=== PATIENT | female | born 1970 | race Caucasian/White ===

== ENCOUNTER → 2018-04-22 09:38 | Outpatient (CLI) | payer SELFPAY ==
--- NOTE | 2018-04-22 10:20 | US_ITS ---
HISTORY: NODULE TECHNIQUE: Keen scale and color doppler imaging was performed of the thyroid gland. COMPARISON: None FINDINGS: # of images incl. paperwork: 58 RIGHT THYROID LOBE: 4.4 x 1.6 x 1.5 cm. Homogeneous echotexture with normal vascularity. 0.4 cm solid appearing avascular hypoechoic to thyroid parenchyma nodule in the posterior, mid pole. 0.5 cm hyperechoic solid-appearing avascular nodule more inferiorly and also posterior in the mid pole. LEFT THYROID LOBE: 4.2 x 1.7 x 1.3 cm. Homogeneous echotexture with normal vascularity. No thyroid nodules are present. In the left lobe ISTHMUS: 0.4 cm thick. No nodules. US/Thyroid IMPRESSION: 2 subcentimeter nodules in the right lobe of the thyroid gland. at 2323 Reported and signed by: Jean-Pierre Ceballos MD Electronically Signed: Jean-Pierre Ceballos, at 23:22 EST Tel , Service support ,
--- OUTSIDE RECORDS SUMMARY | 2018-06-26 09:53 | XMS RPT_ITS | Continuity of Care Document ---
:1970 Author Organization [facility] Address [address] [address] Phone Care Team Providers Name Role Phone Elsie Padron DO Unavailable Noemi Kaminski Unavailable Leroy Sullivan MD Unavailable Lyssa Hwang Unavailable KINGSTON Torres Unavailable Unavailable Unavailable Unavailable Problems Name Dates Details Abortions/Miscarriages Comments: 1. Spontaneous . 2002 Status: Active Body mass index 34.0-34.9, adult (Z68.34, V85.34) Status: Active History of abnormal cervical Pap smear (Z87.898, V13.29) Comments: 2017-- referred to panel wirer and repeat pap normal Status: Active Hyperlipidemia (E78.5, 272.4) Status: Active Hypertension, essential, benign (I10, 401.1) Status: Active Hypothyroidism (E03.9, 244.9) Comments: on no meds currently nad labs normal Status: Active Influenza vaccination declined (Renamed from Refused influenza vaccine) (Z28.21, V64.06) Status: Active Noncompliance with medications (Z91.14, V15.81) Comments: pt stopped her medication for thyriod bc she just thought was supposed Status: Active Non-smoker (Z78.9, V49.89) Status: Active Pregnancies () Comments: 4. 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 Medications Name Dates Details No Known Historical Medications Diflucan 200 MG Oral Tablet 1 Tablet qd for 5 days Quantity: 5 {Tablet} Refills: 0 Ordered:05-Nov-2015 Felipa Padron DO, DO, Kathleen Start : 05-Nov-2015 End : 10-Nov-2015 Inactive Nystop 678365 UNIT/GM External Powder 1 (one) Powder Powder tid for 0 days Quantity: 1 {Bottle} Refills: 5 Ordered:18-Apr-2018 Joaquina Torres LPN Start : 05-Nov-2015 End : 18-Apr-2018 Inactive Comments:large bottle PREDNISONE, 10MG (Oral Tablet) 3 (three) Tablet daily for 7 days Quantity: 21 {Tablet} Refills: 0 Ordered:27-Mar-2014 Juan DACOSTA Aracelis Start : 27-Mar-2014 End : 03-Apr-2014 Inactive Comments:with food Synthroid 50 MCG Oral Tablet 1 Tablet qd for 0 days Quantity: 30 {Tablet} Refills: 6 Ordered:05-Nov-2015 Joaquina Torres LPN Start : 18-Sep-2012 End : 05-Nov-2015 Inactive Terbinafine HCl 1 % External Cream 1 (one) Cream bid for 0 days Quantity: 1 {Tube} Refills: 3 Ordered:05-Nov-2015 Joaquina Torres LPN Start : 03-Apr-2014 End : 05-Nov-2015 Inactive CHERATUSSIN AC, 100-10MG/5ML (Oral Syrup) 1 Syrup 1-2 tsp every 6 hours prn for 0 days Quantity: 8 {Syrup} Refills: 0 Ordered:27-Mar-2014 Mariel Wolfe LPN Start : 11-Apr-2013 End : 27-Mar-2014 Discontinued Comments:eight ounces HYDROCHLOROTHIAZIDE, 12.5MG (Oral Capsule) 1 Capsule qd for 30 days Refills: 0 Ordered:12-Mar-2011 Vito CIDFelipa DO, Kathleen Start : 12-Mar-2011 End : 12-Mar-2011 Discontinued LEVOTHYROXINE SODIUM, 50MCG (Oral Tablet) 1 Tablet qd for 30 days Refills: 0 Ordered:13-Aug-2011 Vito CIDFelipa DO, Kathleen Start : 13-Aug-2011 End : 13-Aug-2011 Discontinued PREDNISONE, 20MG (Oral Tablet) 1 Tablet daily for 5 dyas for 0 days Quantity: 5 {Tablet} Refills: 0 Ordered:27-Mar-2014 Mariel Wolfe LPN Start : 11-Apr-2013 End : 27-Mar-2014 Discontinued SELENIUM SULFIDE, 2.5% (External Lotion) apply over lesions Lotion qd for 0 days Quantity: 1 {bottle(s)} Refills: 1 Ordered:27-Mar-2014 Mariel Wolfe LPN Start : 12-Mar-2011 End : 27-Mar-2014 Discontinued Comments:leave on for 15 mins then rinse Allergies and Adverse Reactions Name Dates Details Aspirin (Salicylates) (Allergy) Status: Active Penicillins (Allergy) Reaction: Nausea Status: Active Past Medical History Name Dates Details Candidiasis of breast (B37.89, 112.89) Status: Inactive as of 18-Apr-2018 Hematuria (R31.9, 599.7) Comments: the blood resolved but moderate leuks-- will cx before tx since asx Status: Resolved as of 14-May-2011 Hoarse voice quality (R49.0, 784.42) Comments: already saw ENT and had scope and has cyst on vocal cords Status: Inactive as of 18-Apr-2018 HOARSE VOICE QUALITY (784.49) Comments: intermittent -- repeatedly off and on Status: Inactive as of 18-Sep-2012 Rash (R21, 782.1) Comments: xple on arms and chest unknown etiology prednisone not helping Status: Inactive as of 05-Nov-2015 Tinea versicolor (B36.0, 111.0) Status: Inactive as of 18-Sep-2012 Procedures Date Value Details 12-Nov-2015 Thyroid Result: Comments: See Note; NOTES: [facility] Imaging Services [address] [place] [address] Verdana 4d Thyroid MR#: [id number] Acct: [id number] Name: RAMONE ALEXANDER Rep #: [id number] : 1970 F 45 From: Dirk Nelson MD PCP: Elsie Padron DO Status: REG CLI Study: Thyroid Date of Exam: 11/12/15 Exam# [id number] Ordering Dr: Elsie Padron DO STUDY: THYROID ULTRAS OUND REASON FOR EXAM: Female, 45 years old. thyroidmegaly felt by doctor TECHNIQUE: Ultrasound evaluation of the thyroid was performed with real-time and static adkins-scale imaging. COMPARISON: None. FINDINGS: RIGHT LOBE: The right lobe of the thyroid gland measures 5.3x2x1.5 cm. There is a homogeneous echotexture. There are 2 lesions. The lesions measures study : Lesion #1 measures 4x4 x 3 mm. Lesion #2 measures 6x7x3 mm. These lesions have nonspecific appearance there are most likely represent benign. LEFT LOBE: The left lobe of the thyroid gland measures 5. 4x1.7x1.7 cm. There is a homogeneous echotexture. There are no demonstrated solid, cystic or complex lesions. ISTHMUS: The isthmus measures 3 mm. . The regional lymph nodes are normal. US/Thyroid IMPRESSION: 2 nodules in the right thyroid lobe the largest measuring 7 mm in greatest diameter most likely represent benign lesions. Electronical ly Signed: Dirk Nelson MD at 8:35 EDT Tel , Service support [phone], CC: Elsie Padron DO Outdoor Recreation Specialist: Signed 05-Nov-2015 ELECTROCARDIOGRAM, COMPLETE (ECG) (25309) Comments: nsr no acute chg Result: [MEASUREMENTS ANALYSIS] Date of Test: 11/05/2015 14:55:36; Heart Rate: 77; DE Interval: 152; QRS: 88; QT Interval: 378; Corrected QT Interval (QTc): 407; P Wave [place]: 42; QRS Wave [place]: 28; T Wave [place]: 34; Blood Pressure: 120/82 [ECG DIAGNOSTIC STATEMENTS] Date of Test: 11/05/2015 14:55:36; Summary: Sinus Rhythm WITHIN NORMAL LIMITS Family History Unknown Family Member Name Dates Details Diabetes Mellitus Comments: Father. Status: Active Hypercholesterolemia Comments: Father. Status: Active Hypertension Comments: Mother. Father. Status: Active Social History Name Dates Details Caffeine Use Status: Active No Drug Use Status: Active Non Drinker/No Alcohol Use Status: Active Non Smoker/No Tobacco Use Status: Active Tobacco use: Never smoker. Comments: 08/13/11 Status: Active Smoking Status Name Dates Details Never smoker Vital Signs Date Test Result Details [id number]-Gey-[id number]:16 Comments: recheck bp 128/90 Pulse 85 /min Comments: Pattern: Regular Respiration Rate 18 /min Comments: Pattern: Unlabored O2 SAT 96 % Comments: Room air BP Systolic 128 mm[Hg] Comments: Patient Position: Standing; Cuff Location: Left Arm; Cuff Size: Large BP Diastolic 98 mm[Hg] Comments: Patient Position: Standing; Cuff Location: Left Arm; Cuff Size: Large Weight 199.375 lb Height 64 in Body Mass Index Calculated 34.22 kg/m2 Body Surface Area Calculated 1.95 m2 :25 Pulse 89 /min Comments: Pattern: Regular Respiration Rate 18 /min Comments: Pattern: Unlabored O2 SAT 97 % Comments: Room air BP Systolic 120 mm[Hg] Comments: Patient Position: Sitting; Cuff Location: Left Arm; Cuff Size: Large BP Diastolic 80 mm[Hg] Comments: Patient Position: Sitting; Cuff Location: Left Arm; Cuff Size: Large Weight 199 lb Height 64 in Body Mass Index Calculated 34.16 kg/m2 Body Surface Area Calculated 1.95 m2 :42 Pulse 90 /min Comments: Pattern: Regular Respiration Rate 18 /min Comments: Pattern: Unlabored O2 SAT 98 % Comments: Room air BP Systolic 120 mm[Hg] Comments: Patient Position: Sitting; Cuff Location: Left Arm; Cuff Size: Large BP Diastolic 82 mm[Hg] Comments: Patient Position: Sitting; Cuff Location: Left Arm; Cuff Size: Large Weight 199.125 lb Height 64 in Body Mass Index Calculated 34.18 kg/m2 Body Surface Area Calculated 1.95 m2 :15 Temperature 97 f Comments: Method: Temporal Pulse 89 /min Comments: Pattern: Regular Respiration Rate 16 /min Comments: Pattern: Unlabored O2 SAT 98 % Comments: Room air BP Systolic 122 mm[Hg] Comments: Patient Position: Sitting; Cuff Location: Left Arm; Cuff Size: Standard BP Diastolic 78 mm[Hg] Comments: Patient Position: Sitting; Cuff Location: Left Arm; Cuff Size: Standard Weight 203.1875 lb Height 64 in Body Mass Index Calculated 34.88 kg/m2 Body Surface Area Calculated 1.97 m2 :20 Temperature 98 f Comments: Method: Oral Pulse 90 /min Comments: Pattern: Regular Respiration Rate 17 /min O2 SAT 98 % Comments: Room air BP Systolic 120 mm[Hg] Comments: Patient Position: Sitting; Cuff Location: Left Arm; Cuff Size: Standard BP Diastolic 72 mm[Hg] Comments: Patient Position: Sitting; Cuff Location: Left Arm; Cuff Size: Standard Weight 200.5 lb Height 64 in Body Mass Index Calculated 34.42 kg/m2 Body Surface Area Calculated 1.96 m2 :23 Temperature 99 f Comments: Method: Oral Pulse 100 /min Comments: Pattern: Regular Respiration Rate 16 /min Comments: Pattern: Unlabored O2 SAT 98 % Comments: Room air BP Systolic 122 mm[Hg] Comments: Patient Position: Sitting; Cuff Location: Left Arm; Cuff Size: Standard BP Diastolic 82 mm[Hg] Comments: Patient Position: Sitting; Cuff Location: Left Arm; Cuff Size: Standard Weight 200.5 lb Height 64 in Body Mass Index Calculated 34.42 kg/m2 Body Surface Area Calculated 1.96 m2 :13 Temperature 98.2 f Comments: Method: Oral Pulse 60 /min Comments: Pattern: Regular Respiration Rate 20 /min Comments: Pattern: Unlabored BP Systolic 102 mm[Hg] Comments: Patient Position: Sitting; Cuff Location: Left Arm; Cuff Size: Standard BP Diastolic 70 mm[Hg] Comments: Patient Position: Sitting; Cuff Location: Left Arm; Cuff Size: Standard Weight 200.5 lb Height 64 in Body Mass Index Calculated 34.42 kg/m2 Body Surface Area Calculated 1.96 m2 :03 Temperature 98 f Pulse 60 /min Comments: Pattern: Regular Respiration Rate 20 /min Comments: Pattern: Unlabored BP Systolic 118 mm[Hg] Comments: Patient Position: Sitting; Cuff Location: Left Arm; Cuff Size: Large BP Diastolic 84 mm[Hg] Comments: Patient Position: Sitting; Cuff Location: Left Arm; Cuff Size: Large Weight 197.1875 lb Height 64 in Body Mass Index Calculated 33.85 kg/m2 Body Surface Area Calculated 1.94 m2 :18 Temperature 98 f Pulse 72 /min Comments: Pattern: Regular Respiration Rate 20 /min Comments: Pattern: Unlabored BP Systolic 110 mm[Hg] Comments: Patient Position: Sitting; Cuff Location: Left Arm; Cuff Size: Large BP Diastolic 72 mm[Hg] Comments: Patient Position: Sitting; Cuff Location: Left Arm; Cuff Size: Large Weight 195.5 lb Height 64 in Body Mass Index Calculated 33.56 kg/m2 Body Surface Area Calculated 1.94 m2 :13 Temperature 97.2 f Comments: Method: Oral Pulse 60 /min Comments: Pattern: Regular Respiration Rate 20 /min Comments: Pattern: Unlabored BP Systolic 128 mm[Hg] Comments: Patient Position: Sitting; Cuff Location: Left Arm; Cuff Size: Large BP Diastolic 82 mm[Hg] Comments: Patient Position: Sitting; Cuff Location: Left Arm; Cuff Size: Large Weight 195.5 lb Height 64 in Body Mass Index Calculated 33.56 kg/m2 Body Surface Area Calculated 1.94 m2 :56 Temperature 98.2 f Comments: Method: Oral Pulse 88 /min Comments: Pattern: Regular Respiration Rate 18 /min Comments: Pattern: Unlabored BP Systolic 118 mm[Hg] Comments: Patient Position: Sitting; Cuff Location: Left Arm; Cuff Size: Standard BP Diastolic 80 mm[Hg] Comments: Patient Position: Sitting; Cuff Location: Left Arm; Cuff Size: Standard Weight 195.5625 lb Height 64 in Body Mass Index Calculated 33.57 kg/m2 Body Surface Area Calculated 1.94 m2 Results Date Description Value Details :45 PAP I-G w/rfx hrHPV Comments: CYTOLOGY INFORMATION:- CLINICAL INFORMATION:- DATE LMP/MENOPAUSE: 06/26/16 LMP- COLLECTION VIAL: Thin Prep Vial- HORTICULTURAL WORKER SOURCE: CERVICAL/ENDOCERVICAL- COLLECTION TECHNIQUE: [facility]AT[facility] (refer to report for specific site)refer to report for address and phone number HPV HC,HGH RISK Negative Comments: This high-risk HPV test detects thirteen high-risk types(16/18/31/33/35/39/45/51/52/56/58/59/68) withoutdifferentiation.Performed at: - Lab[address]FabianWest [place], [place] [id number] (Normal) b Director: Sridevi Love MD, Phone: [phone] at: =[facility] LabCo[address]Fabian alons[place], [place] [id number] Director: Sridevi Love MD, Phone: [phone] HPV RFLX Comment Comments: See below for HPV testing results. (Normal) PAPSMR Comment Comments: The Pap smear is a screening test designed to aid in thedetection of premalignant and malignant conditions of theuterine cervix. It is not a diagnostic procedure andshould not be used as the sole means (Normal) of detecting cervicalcancer. Both false-positive and false-negative reports dooccur. COMM . (Normal) TEST METHOD Comment Comments: This liquid based ThinPrep(R) pap test was screened withthe use of an image guided system. (Normal) Path prov. ICD9 Comment Comments: R87.610, R87.5 (Normal) SIGN Comment Comments: Sridevi Love MD, Pathologist (Normal) PERFORM Comment Comments: Suzanna Avila, Chemical Maker (ASCP) (Normal) RECOMM Comment Comments: Suggest follow up as clinically appropriate. (Abnormal) ADEQ Comment Comments: Satisfactory for evaluation. Endocervical and/or squamous metaplasticcells (endocervical component) are present. (Normal) DIAGN Comment Comments: EPITHELIAL CELL ABNORMALITY.ATYPICAL SQUAMOUS CELLS OF UNDETERMINED SIGNIFICANCE.FUNGAL ORGANISMS MORPHOLOGICALLY CONSISTENT WITH SAMI SPECIES AREPRESENT. (Abnormal) [id number]-Vey-[id number]:37 HgA1C , Office (36273) HgA1C , Office 5.6 % (Normal) Range: 4.6 - 7.1 6-Ofr-444288:59 Microscopic Examination Comments: PATIENT NOT FASTINGPERFORMED BY: [facility] Bvunth[address]Dublin [place] [id number] Bacteria None seen (Normal) Mucus Threads Present (Normal) Epithelial Cells (non renal) 0-10 {/hpf} (Normal) Range: 0 - 10 RBC 0-2 {/hpf} (Normal) Range: 0 - 2 WBC 0-5 {/hpf} (Normal) Range: 0 - 5 :59 T3, FREE (TRIDOTHYRONINE) (43109) Comments: PATIENT NOT FASTINGPERFORMED BY: [facility] [id number] Triiodothyronine,Free,Serum 3.1 pg/mL (Normal) Range: 2.0-4.4 :59 T4, FREE (THYROXINE) (89956) Comments: PATIENT NOT FASTINGPERFORMED BY: [facility] [id number] T4,Free(Direct) 0.94 ng/dL (Normal) Range: 0.82-1.77 :59 TSH (35537) Comments: PATIENT NOT FASTINGPERFORMED BY: [facility] [id number] TSH 1.590 {uIU/mL} (Normal) Range: 0.450-4.500 :59 URINALYSIS, W/ MICRO (40684) Comments: PATIENT NOT FASTINGPERFORMED BY: [facility] Oghdcl7476 [facility] [id number] Microscopic Examination See below: (Normal) Comments: Microscopic was indicated and was performed. Microscopic Examination MICRON (Normal) Comments: Microscopic follows if indicated. Nitrite, Urine Negative (Normal) Urobilinogen,Semi-Qn 0.2 mg/dL (Normal) Range: 0.2-1.0 Bilirubin Negative (Normal) Occult Blood Negative (Normal) Ketones Negative (Normal) Glucose Negative (Normal) Protein Negative (Normal) WBC Esterase Negative (Normal) Appearance Clear (Normal) Urine-Color Yellow (Normal) pH 7.0 (Normal) Range: 5.0-7.5 Specific [place] 1.014 (Normal) Range: 1.005-1.030 :59 MICROALBUMIN: CREATININE RATIO Comments: PATIENT NOT FASTINGPERFORMED BY: [facility] [id number] ([id number]) AND (50305) Microalb/Creat Ratio 9.0 {mg/g_creat} (Normal) Range: 0.0-30.0 Microalbumin, Urine 5.3 ug/mL (Normal) Creatinine, Urine 58.7 mg/dL (Normal) :59 METABOLIC PANEL, COMPREHENSIVE Comments: PATIENT NOT FASTINGPERFORMED BY: sMedio70 [facility]UUNC [facility] [id number] ([id number]) ALT (SGPT) 24 [iU]/L (Normal) Range: 0-32 AST (SGOT) 19 [iU]/L (Normal) Range: 0-40 Alkaline Phosphatase, S 62 [iU]/L (Normal) Range: 39-117 Bilirubin, Total 0.4 mg/dL (Normal) Range: 0.0-1.2 A/G Ratio 1.8 (Normal) Range: 1.1-2.5 Globulin, Total 2.5 g/dL (Normal) Range: 1.5-4.5 Albumin, Serum 4.4 g/dL (Normal) Range: 3.5-5.5 Protein, Total, Serum 6.9 g/dL (Normal) Range: 6.0-8.5 Calcium, Serum 9.6 mg/dL (Normal) Range: 8.7-10.2 Carbon Dioxide, Total 26 mmol/L (Normal) Range: 18-29 Chloride, Serum 99 mmol/L (Normal) Range: 97-108 Potassium, Serum 4.0 mmol/L (Normal) Range: 3.5-5.2 Sodium, Serum 142 mmol/L (Normal) Range: 134-144 BUN/Creatinine Ratio 14 (Normal) Range: 9-23 eGFR If Africn Am 127 mL/min/1.73 (Normal) eGFR If NonAfricn Am 110 mL/min/1.73 (Normal) Creatinine, Serum 0.63 mg/dL (Normal) Range: 0.57-1.00 BUN 9 mg/dL (Normal) Range: 6-24 Glucose, Serum 98 mg/dL (Normal) Range: 65-99 :59 CBC W/AUTO DIFF WBC Comments: PATIENT NOT FASTINGPERFORMED BY: [employer] Vhbdna9565 [facility] [id number] Information: [id number]; will review at 11/16 (42420) Immature Grans (Abs) 0.0 {x10E3/uL} (Normal) Range: 0.0-0.1 Immature Granulocytes 0 % (Normal) Baso (Absolute) 0.0 {x10E3/uL} (Normal) Range: 0.0-0.2 Eos (Absolute) 0.1 {x10E3/uL} (Normal) Range: 0.0-0.4 Monocytes(Absolute) 0.5 {x10E3/uL} (Normal) Range: 0.1-0.9 Lymphs (Absolute) 2.1 {x10E3/uL} (Normal) Range: 0.7-3.1 Neutrophils (Absolute) 4.2 {x10E3/uL} (Normal) Range: 1.4-7.0 Basos 0 % (Normal) Eos 1 % (Normal) Monocytes 8 % (Normal) Lymphs 30 % (Normal) Neutrophils 61 % (Normal) Platelets 225 {x10E3/uL} (Normal) Range: 150-379 RDW 13.6 % (Normal) Range: 12.3-15.4 MCHC 32.6 g/dL (Normal) Range: 31.5-35.7 MCH 29.5 pg (Normal) Range: 26.6-33.0 MCV 91 fL (Normal) Range: 79-97 Hematocrit 43.0 % (Normal) Range: 34.0-46.6 Hemoglobin 14.0 g/dL (Normal) Range: 11.1-15.9 RBC 4.75 {x10E6/uL} (Normal) Range: 3.77-5.28 WBC 6.9 {x10E3/uL} (Normal) Range: 3.4-10.8 :52 Rapid Flu (30608 x 2) Influenza A Ag negative (Normal) :24 Rapid Strep Test, Office (40843) Rapid Strep Test, Office Negative (Normal) :42 LIPID PANEL (20306) Comments: PATIENT WAS FASTINGPERFORMED BY: LabCoRiverview Medical CenterWujwbz5772 [facility] [id number] LDL/HDL Ratio 4.0 {ratio_units} (Abnormal) Range: 0.0-3.2 LDL Cholesterol Calc 140 mg/dL (Abnormal) Range: 0-99 VLDL Cholesterol Markos 31 mg/dL (Normal) Range: 5-40 HDL Cholesterol 35 mg/dL (Abnormal) Comments: According to ATP-III Guidelines, HDL-C >59 mg/dL is considered anegative risk factor for CHD. Triglycerides 155 mg/dL (Abnormal) Range: 0-149 Cholesterol, Total 206 mg/dL (Abnormal) Range: 100-199 22-Vkr-411377:42 URINALYSIS, W/ MICRO (40581) Comments: PATIENT WAS FASTINGPERFORMED BY: [employer] [id number] Microscopic Examination See below: (Normal) Nitrite, Urine Negative (Normal) Urobilinogen,Semi-Qn 0.2 mg/dL (Normal) Range: 0.0-1.9 Bilirubin Negative (Normal) Occult Blood Trace (Abnormal) Ketones Negative (Normal) Glucose Negative (Normal) Protein Negative (Normal) WBC Esterase 2+ (Abnormal) Appearance Clear (Normal) Urine-Color Yellow (Normal) pH 7.5 (Normal) Range: 5.0-7.5 Specific [place] 1.016 (Normal) Range: 1.005-1.030 27-Ube-616633:42 MICROALBUMIN: CREATININE RATIO Comments: PATIENT WAS FASTINGPERFORMED BY: [employer]70 [facility] [id number] (64210) AND (36207) Microalb/Creat Ratio 6.7 {mg/g_creat} (Normal) Range: 0.0-30.0 Microalbumin, Urine 7.0 ug/mL (Normal) Range: 0.0-17.0 Creatinine, Urine 104.7 mg/dL (Normal) Range: 15.0-278.0 86-Qqv-649130:42 METABOLIC PANEL, COMPREHENSIVE Comments: PATIENT WAS FASTINGPERFORMED BY: [employer] [facility] [id number] (37732) ALT (SGPT) 25 [iU]/L (Normal) Range: 0-32 AST (SGOT) 19 [iU]/L (Normal) Range: 0-40 Alkaline Phosphatase, S 59 [iU]/L (Normal) Range: 25-150 Bilirubin, Total 0.5 mg/dL (Normal) Range: 0.0-1.2 A/G Ratio 1.7 (Normal) Range: 1.1-2.5 Globulin, Total 2.6 g/dL (Normal) Range: 1.5-4.5 Albumin, Serum 4.4 g/dL (Normal) Range: 3.5-5.5 Protein, Total, Serum 7.0 g/dL (Normal) Range: 6.0-8.5 Calcium, Serum 9.2 mg/dL (Normal) Range: 8.7-10.2 Carbon Dioxide, Total 22 mmol/L (Normal) Range: 19-28 Comments: Please note reference interval change Chloride, Serum 101 mmol/L (Normal) Range: 97-108 Potassium, Serum 4.3 mmol/L (Normal) Range: 3.5-5.2 Sodium, Serum 138 mmol/L (Normal) Range: 134-144 BUN/Creatinine Ratio 17 (Normal) Range: 9-23 eGFR If Africn Am 129 mL/min/1.73 (Normal) eGFR If NonAfricn Am 112 mL/min/1.73 (Normal) Creatinine, Serum 0.64 mg/dL (Normal) Range: 0.57-1.00 BUN 11 mg/dL (Normal) Range: 6-24 Glucose, Serum 90 mg/dL (Normal) Range: 65-99 71-Tjn-998253:42 CBC WITH MANUAL DIFF Comments: PATIENT WAS FASTINGPERFORMED BY: [facility]6[address] [facility] [id number] Information: [id number] (52096) Immature Grans (Abs) 0.0 {x10E3/uL} (Normal) Range: 0.0-0.1 Immature Granulocytes 0 % (Normal) Range: 0-2 Baso (Absolute) 0.0 {x10E3/uL} (Normal) Range: 0.0-0.2 Eos (Absolute) 0.1 {x10E3/uL} (Normal) Range: 0.0-0.4 Monocytes(Absolute) 0.4 {x10E3/uL} (Normal) Range: 0.1-1.0 Lymphs (Absolute) 2.3 {x10E3/uL} (Normal) Range: 0.7-4.5 Neutrophils (Absolute) 3.4 {x10E3/uL} (Normal) Range: 1.8-7.8 Basos 0 % (Normal) Range: 0-3 Eos 1 % (Normal) Range: 0-7 Monocytes 6 % (Normal) Range: 4-13 Lymphs 37 % (Normal) Range: 14-46 Neutrophils 56 % (Normal) Range: 40-74 Platelets 244 {x10E3/uL} (Normal) Range: 140-415 RDW 13.8 % (Normal) Range: 12.3-15.4 MCHC 33.3 g/dL (Normal) Range: 31.5-35.7 MCH 29.9 pg (Normal) Range: 26.6-33.0 MCV 90 fL (Normal) Range: 79-97 Hematocrit 41.4 % (Normal) Range: 34.0-46.6 Hemoglobin 13.8 g/dL (Normal) Range: 11.1-15.9 RBC 4.61 {x10E6/uL} (Normal) Range: 3.77-5.28 WBC 6.2 {x10E3/uL} (Normal) Range: 4.0-10.5 02-Dkr-998727:42 TSH (63522) Comments: PATIENT WAS FASTINGPERFORMED BY: [employer] Pjggfw2026 [facility] [id number] TSH 1.580 {uIU/mL} (Normal) Range: 0.450-4.500 21-Gnt-904233:42 Microscopic Examination Comments: PATIENT WAS FASTINGPERFORMED BY: [employer] Rijctb7552 [facility] [id number] Bacteria None seen (Normal) Mucus Threads Present (Normal) Epithelial Cells (non renal) 0-10 {/hpf} (Normal) Range: 0 - 10 RBC 0-3 {/hpf} (Normal) Range: 0 - 3 WBC 0-5 {/hpf} (Normal) Range: 0 - 5 61-Iiv-684831:03 TSH (62890) Comments: PATIENT NOT FASTINGPERFORMED BY: [facility]usRiverview Medical CenterHqhbps3208 [facility] [id number] Information: [id number] TSH 2.400 {uIU/mL} (Normal) Range: 0.450-4.500 75-Fau-50203:29 PELVIC (NON ) Radiology Report See Note (Normal) Comments: PROCEDURE: ULTRASOUND OF THE FEMALE PELVIS - COMPLETE REASON FOR EXAM: Female, 40 years old. LMP: April 23, 2011.Uterinefibroids. TECHNIQUE: Transabdominal TECHNICAL QUALITY: Adequate. COLE RISON: None. FINDINGS:The uterus is retroverted and is in a midline position. The uterusmeasures 12.2 x 8.2 x 1.5 cm. The endometrium measures 1.2 mm inthickness, and is hyperechoic. There is no de monstrated endometrialmass.There are 4 fibroids seen within the body of the uterus. The largestmeasures 4.1 cm x 2.9 cm x 2.7 cm. Normal uterine cervix. The right ovary measures 3.0 cm x 2.7 cm by 2.5 cm. There is no rightovarian cyst or ovarian mass. There is no visualized right adnexal massorcomplex lesion. The left ovary measures 2.0 cm x 2.2 cm by 1.7 cm. There is no leftovarian cyst or ovari an mass. There is no visualized left adnexal massorcomplex lesion. There is minimal fluid in the cul-de-sac. The distended urinary bladder has a volume of 571 ml. There is a normalwall thickness of th e distended urinary bladder. There is nodemonstrated mass within the urinary bladder. There are no demonstratedbladder calculi. IMPRESSION:Enlarged fibroid uterus. To consult with a radiologist martha rding this report, please call our [id number] line @ Dictated on 05/19/11 0939 by Amanda Chowdhury MDribed on 05/19/11 1343 by ITS IMPORTSign by Daniel Chowdhury MD on 05/05 08/13 1344 Sign by: Daniel Chowdhury MD 04-Krb-972129:28 URINE TAQUERIA CULTURE-IDENTIFICATN Comments: PATIENT NOT FASTINGPERFORMED BY: [facility]6370 [facility] [id number] Information: [id number] ([id number]) Result 1 MUG (Normal) Comments: Mixed urogenital flora10,000-25,000 colony forming units per mL Urine Final report (Normal) Culture,Comprehensive 16-Syb-911437:40 Urinalysis, Office ([id number]) UA - BILIRUBIN Negative (Normal) UA - BLOOD Negative (Normal) UA - GLUCOSE Negative (Normal) UA - KETONES Negative mg/dL (Normal) UA - LEUKOCYTE ESTERASE Moderate (Normal) UA - NITRITE Negative (Normal) UA - PH 8.0 (Normal) UA - PROTEIN Negative mg/dL (Normal) UA - SPECIFIC GRAVITY 1.020 (Normal) URINE UROBILINGN EMILY TIMED Normal mg/dL (Normal) 1-Xvv-691386:09 Microscopic Examination Comments: PATIENT WAS FASTINGPERFORMED BY: [employer] [facility] [id number] Bacteria Moderate (Abnormal) Mucus Threads Present (Normal) Epithelial Cells (non renal) 0-10 {/hpf} (Normal) Range: 0 - 10 RBC 11-30 {/hpf} (Abnormal) Range: 0 - 3 WBC 11-30 {/hpf} (Abnormal) Range: 0 - 5 0-Upd-261698:09 TSH ([id number]) Comments: PATIENT WAS FASTINGPERFORMED BY: [employer] [facility] [id number] TSH 1.490 {uIU/mL} (Normal) Range: 0.450-4.500 0-Tpy-242984:09 URINALYSIS, W/ MICRO ([id number]) Comments: PATIENT WAS FASTINGPERFORMED BY: [employer] [facility] [id number] Microscopic Examination See below: (Normal) Nitrite, Urine Negative (Normal) Urobilinogen,Semi-Qn 0.2 mg/dL (Normal) Range: 0.0-1.9 Bilirubin Negative (Normal) Occult Blood 3+ (Abnormal) Ketones Negative (Normal) Glucose Negative (Normal) Protein Negative (Normal) WBC Esterase 1+ (Abnormal) Appearance Clear (Normal) Urine-Color Yellow (Normal) pH 7.5 (Normal) Range: 5.0-7.5 Specific [place] 1.020 (Normal) Range: 1.005-1.030 7-Vnc-862408:09 MICROALBUMIN: CREATININE RATIO Comments: PATIENT WAS FASTINGPERFORMED BY: [employer] [facility] [id number] ([id number]) AND ([id number]) Creatinine, Urine 108.7 mg/dL (Normal) Range: 16.0-327.0 Microalb/Creat Ratio 21.9 {mg/g_creat} (Normal) Range: 0.0-30.0 Microalbumin, Urine 23.8 ug/mL (Abnormal) Range: 0.0-17.0 7-Vvt-755636:09 METABOLIC PANEL, COMPREHENSIVE Comments: PATIENT WAS FASTINGPERFORMED BY: [employer] [facility] [id number] ([id number]) ALT (SGPT) 23 [iU]/L (Normal) Range: 0-40 AST (SGOT) 16 [iU]/L (Normal) Range: 0-40 Alkaline Phosphatase, S 68 [iU]/L (Normal) Range: 25-150 Bilirubin, Total 0.5 mg/dL (Normal) Range: 0.0-1.2 A/G Ratio 1.7 (Normal) Range: 1.1-2.5 Globulin, Total 2.8 g/dL (Normal) Range: 1.5-4.5 Albumin, Serum 4.7 g/dL (Normal) Range: 3.5-5.5 Protein, Total, Serum 7.5 g/dL (Normal) Range: 6.0-8.5 Calcium, Serum 9.5 mg/dL (Normal) Range: 8.7-10.2 Carbon Dioxide, Total 27 mmol/L (Normal) Range: 20-32 Chloride, Serum 99 mmol/L (Normal) Range: 97-108 Potassium, Serum 4.1 mmol/L (Normal) Range: 3.5-5.2 Sodium, Serum 139 mmol/L (Normal) Range: 135-145 Comments: Effective March 22, 2011 Sodium, Serum reference interval will be changing to: 134 - 144 mmol/L BUN/Creatinine Ratio 16 (Normal) Range: 8-20 eGFR If Africn Am 132 mL/min/1.73 (Normal) Comments: Note: A persistent eGFR <60 mL/min/1.73 m2 (3 months or more) mayindicate chronic kidney disease. An eGFR >59 mL/min/1.73 m2 with anelevated urine protein also may indicate chronic kidney disease.Calculated using CKD-EPI formula. eGFR If NonAfricn Am 115 mL/min/1.73 (Normal) Creatinine, Serum 0.62 mg/dL (Normal) Range: 0.57-1.00 BUN 10 mg/dL (Normal) Range: 6-20 Glucose, Serum 87 mg/dL (Normal) Range: 65-99 :09 LIPID PANEL ([id number]) Comments: PATIENT WAS FASTINGPERFORMED BY: [facility] CenterRxzurq8628 [facility] [id number] LDL/HDL Ratio 3.9 {ratio_units} (Abnormal) Range: 0.0-3.2 LDL Cholesterol Calc 139 mg/dL (Abnormal) Range: 0-99 VLDL Cholesterol Markos 35 mg/dL (Normal) Range: 5-40 HDL Cholesterol 36 mg/dL (Abnormal) Comments: According to ATP-III Guidelines, HDL-C >59 mg/dL is considered anegative risk factor for CHD. Triglycerides 174 mg/dL (Abnormal) Range: 0-149 Cholesterol, Total 210 mg/dL (Abnormal) Range: 100-199 :09 CBC WITH MANUAL DIFF Comments: PATIENT WAS FASTINGPERFORMED BY: [facility] CenterCbtqjo0187 [facility] [id number] Information: [id number] ([id number]) Immature Grans (Abs) 0.0 {x10E3/uL} (Normal) Range: 0.0-0.1 Immature Granulocytes 0 % (Normal) Range: 0-2 Baso (Absolute) 0.0 {x10E3/uL} (Normal) Range: 0.0-0.2 Eos (Absolute) 0.1 {x10E3/uL} (Normal) Range: 0.0-0.4 Monocytes(Absolute) 0.4 {x10E3/uL} (Normal) Range: 0.1-1.0 Lymphs (Absolute) 2.7 {x10E3/uL} (Normal) Range: 0.7-4.5 Neutrophils (Absolute) 4.2 {x10E3/uL} (Normal) Range: 1.8-7.8 Basos 0 % (Normal) Range: 0-3 Eos 1 % (Normal) Range: 0-7 Monocytes 6 % (Normal) Range: 4-13 Lymphs 37 % (Normal) Range: 14-46 Neutrophils 56 % (Normal) Range: 40-74 Platelets 246 {x10E3/uL} (Normal) Range: 140-415 RDW 13.4 % (Normal) Range: 11.7-15.0 MCHC 33.4 g/dL (Normal) Range: 32.0-36.0 MCH 29.7 pg (Normal) Range: 27.0-34.0 MCV 89 fL (Normal) Range: 80-98 Hematocrit 42.2 % (Normal) Range: 34.0-44.0 Hemoglobin 14.1 g/dL (Normal) Range: 11.5-15.0 RBC 4.74 {x10E6/uL} (Normal) Range: 3.80-5.10 WBC 7.4 {x10E3/uL} (Normal) Range: 4.0-10.5 Plan of Care Name Dates Details Instructions Hypertension, essential, benign : Follow up in 1 month- ck wt and cris bp- / lab results Indication: Hypertension, essential, benign Vocal cord cyst : Reviewed [employer]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- ENT -- no surgical iintervention Indication: Vocal cord cyst Hypertension, essential, benign : BP MONITORING - SELF Indication: Hypertension, essential, benign Hyperlipidemia : Cholesterol mgmt Indication: Hyperlipidemia Hypertension, essential, benign : Diet, Exercise, and Wt loss Indication: Hypertension, essential, benign Hypertension, essential, benign : HTN/CAD Red Flags Indication: Hypertension, essential, benign Hypothyroidism : Follow up in 1 year or as needed Indication: Hypothyroidism Thyromegaly : Reviewed Diagnostic Tests Indication: Thyromegaly Hypothyroidism : Reviewed Lab Indication: Hypothyroidism Hypertension, essential, benign : Follow up in 2 weeks Indication: Hypertension, essential, benign Hyperlipidemia : Cholesterol mgmt Indication: Hyperlipidemia Hoarse voice quality : Reviewed [employer] Broker Letter- cyst on vocal cords / dr sullivan Indication: Hoarse voice quality Rash : Follow up in 2 weeks Indication: Rash Hypertension, essential, benign : Follow up in 6 months Indication: Hypertension, essential, benign Hyperlipidemia : Cholesterol mgmt Indication: Hyperlipidemia Hypertension, essential, benign : HTN/CAD Red Flags Indication: Hypertension, essential, benign Hypothyroidism : Hypothyroidism: Brief Version *: hypothyroidism Indication: Hypothyroidism Hypertension, essential, benign : Follow up in 4 months Indication: Hypertension, essential, benign Hyperlipidemia : *Cholesterol - Nonprescription Treatment Indication: Hyperlipidemia Hyperlipidemia : Cholesterol mgmt Indication: Hyperlipidemia Hypertension, essential, benign : Diet, Exercise, and Wt loss Indication: Hypertension, essential, benign Hypertension, essential, benign : HTN/CAD Red Flags Indication: Hypertension, essential, benign Uterine fibroid : Reviewed Diagnostic Tests Indication: Uterine fibroid Hyperlipidemia : Follow up in 3 months Indication: Hyperlipidemia Hyperlipidemia : *Cholesterol - Nonprescription Treatment Indication: Hyperlipidemia Hyperlipidemia : Cholesterol mgmt Indication: Hyperlipidemia Hypothyroidism : Reviewed Lab Indication: Hypothyroidism Hypothyroidism : Continue Current Prescription(s) Indication: Hypothyroidism Hypertension, essential, benign : Diet, Exercise, and Wt loss Indication: Hypertension, essential, benign Hypertension, essential, benign : Reviewed Lab Indication: Hypertension, essential, benign Hypertension, essential, benign : Follow up in 2 months Indication: Hypertension, essential, benign Hypertension, essential, benign : Diet, Exercise, and Wt loss Indication: Hypertension, essential, benign Hypertension, essential, benign : HTN/CAD Red Flags Indication: Hypertension, essential, benign Planned Observations T4, FREE (THYROXINE) ([id number])Indication: Hypothyroidism On: 66-Nat-948577:42 Request T3, FREE (TRIDOTHYRONINE) (72709)Indication: Hypothyroidism On: 44-Lbb-004871:42 Request LIPOPROTEIN, BLD, BY NMR (40212)Indication: Hyperlipidemia On: 47-Hfi-063844:41 Request TSH ([id number])Indication: Hypothyroidism On: 21-Ion-397837:41 Request URINALYSIS, W/ MICRO (04506)Indication: Hypertension, essential, benign On: 24-Tht-893234:41 Request MICROALBUMIN: CREATININE RATIO (36066) AND (15185)Indication: Hypertension, essential, benign On: 71-Zdb-875838:41 Request METABOLIC PANEL, COMPREHENSIVE (72737)Indication: Hypertension, essential, benign On: 44-Sxz-642979:41 Request CBC W/AUTO DIFF WBC (22545)Indication: Hypertension, essential, benign On: 41-Bgz-854770:41 Request LIPID PANEL (04867)Indication: Hyperlipidemia On: 91-Ype-497852:26 Request Planned Encounters Medical; 1 Month FU - On: 23-May-2018 10:00 [facility] Elsie Padron DO, DO, Kathleen Planned Procedures ELECTROCARDIOGRAM, COMPLETE (ECG) On: 18-Apr-2018 Intent (54852)By: Elsie Padron DO Comments: nsr no acute chg -poor R wave progression Elsie CID THYROID ULTRASOUND (49790)By: Vito On: 18-Apr-2018 Intent Elsie CID DO, Kathleen Ultrasound - ThyroidBy: Vito CID, On: 05-Nov-2015 Intent Elsie Rodriguez DO Eprescribed prescriptions ([id number])By: On: 11-Apr-2013 Intent Delia Valverde EKG (09433)By: Elsie Padron DO On: 18-Sep-2012 Intent Elsie Padron DO Comments: nsr no acute chgn MAMMOGRAM, SCREENING, BOTH BREASTS On: 18-Sep-2012 Intent (90408)By: Elsie Padron DO Comments: dx screening Elsie CID Eprescribed prescriptions ([id number])By: On: 18-Sep-2012 Intent BrianJoaquina LPN EKG (78188)By: Elsie Padron DO On: 13-Aug-2011 Intent Elsie Padron DO Comments: nsr no acute chg Ultrasound - PelvisBy: Vito CID, On: 14-May-2011 Intent Elsie Rodriguez DO EKG (47165)By: Elsie Padron DO On: 12-Mar-2011 Intent Elsie Padron DO Comments: nsr no acute changes Instructions Name Dates Details Non-smoker : How to access health information online Indication: Non-smoker Non-smoker : How to access health information online Indication: Non-smoker Non-smoker : Patient Instructions Indication: Non-smoker Hypothyroidism : Patient Instructions Indication: Hypothyroidism Noncompliance with medications : Patient Instructions Indication: Noncompliance with medications Sore throat : Patient Instructions Indication: Sore throat Hypothyroidism : Patient Instructions Indication: Hypothyroidism Encounters Office Visit On: 18-Apr-2018 10:03 Encounter Reason: Follow up for chronic medical issues - The patient feels well with no complaints, has good energy level and is sleeping poorly. Patient has been non-compliant with instructions. Patient sleeps 8 hours p End: 18-Apr-2018 11:17 er night. Nutrition: balanced diet and supplemental vitamins. The medical issues the patient is following up for include All identified problems below, gastric reflux, high blood pressure and high lobito sterol. Note for Follow up for chronic medical issues: i have been feeling good so just didnt bother coming inEncounter Diagnosis: Non-smoker, Hypertension, essential, benign, Hyperlipidemia, Vocal cord cyst, Body mass index 34.0-34.9, adult, Hypothyroidism, Influenza vaccination declined (Renamed from Refused influenza vaccine), Thyroid nodule, History of abnormal cervical Pap smear [facility] Office Visit On: 17-Nov-2015 13:22 Encounter Reason: Follow up tests - Date: (11/04 labs and 11/11 u/s).Encounter Diagnosis: Hypothyroidism, Thyromegaly, Body mass index 34.0-34.9, adult, Hoarse voice quality End: 17-Nov-2015 17:01 [facility] Office Visit On: 05-Nov-2015 13:36 Encounter Reason: Follow up for chronic medical issues - The patient feels well with minor complaints, has good energy level and is sleeping poorly. Patient has been non-compliant with instructions. Patient sleeps 5 hour End: 05-Nov-2015 15:49 s per night. Nutrition: balanced diet and supplemental vitamins. The medical issues the patient is following up for include All identified problems below, gastric reflux, high blood pressure and high cholesterol. blood pressure range : and weight :. Encounter Diagnosis: Hypertension, essential, benign, Hypothyroidism, Hyperlipidemia, Hoarse voice quality, Noncompliance with medications, Vocal cord cyst, Thyromegaly, Candidiasis of breast [facility] Office Visit On: 03-Apr-2014 8:16 Encounter Reason: Follow up acute care visit - The patient feels the same. Patient has been compliant with instructions. Patient sleeps 8 hours per night. Nutrition: balanced diet. The medical issues the patient is follo End: 03-Apr-2014 12:05 wing up for include All identified problems below and other (rash ).Encounter Diagnosis: Rash, Candidiasis of breast [facility] Office Visit On: 27-Mar-2014 11:13 Encounter Reason: Skin Problems - The onset of the skin problems has been sudden and they have been occurring in a persistent pattern. The course has been increasing. The problem is characterized as itching and a change End: 27-Mar-2014 11:54 in skin color. Lesions are described as red. The spots were first seen on the upper extremity (bilatteral). It spread to the trunk, the upper extremity and exposed areas. There has been associated itching, while there has been no pain. Encounter Diagnosis: Candidiasis of breast, Rash [facility] Office Visit On: 11-Apr-2013 9:20 Encounter Reason: Sore Throat - Symptoms include sore throat, nasal congestion and postnasal drainage. The symptoms are symmetrical. Onset was 1 day(s) ago. The patient describes this as worsening. Associated symptoms in End: 13-Apr-2013 7:13 clude headache, nausea and cough. Note for Sore throat: when cough not able to get up anything. ears full. some muscle aches. no fever.Encounter Diagnosis: Sore throat (462) [facility] Office Visit On: 18-Sep-2012 15:39 Encounter Reason: Follow up for chronic medical issues - The patient feels well with minor complaints, has good energy level and is sleeping well. Patient has been compliant with instructions. Current medication use: no End: 18-Sep-2012 16:52 side effects and compliant with dosing regimen. Patient sleeps 8 hours per night. Nutrition: balanced diet and supplemental vitamins. The medical issues the patient is following up for include All ident ified problems below, high blood pressure, high cholesterol and hypothyroid. weight :.Encounter Diagnosis: Hypothyroidism(244.9), HYPERTENSION, BENIGN ESSENTIAL (401.1), Hyperlipidemia (272.4) [facility] Office Visit On: 13-Aug-2011 10:00 Encounter Reason: Follow up for chronic medical issues - The patient feels well with minor complaints, has good energy level and is sleeping well. Patient has been compliant with instructions. Current medication use: no End: 13-Aug-2011 15:31 side effects and compliant with dosing regimen. Patient sleeps 7 hours per night. Nutrition: balanced diet and no supplemental vitamins & iron. The medical issues the patient is following up for inc lude All identified problems below, high blood pressure, high cholesterol and hypothyroid. weight :.Encounter Diagnosis: Hyperlipidemia (272.4), HYPERTENSION, BENIGN ESSENTIAL (401.1), Hypothyroidism(244.9), HOARSE VOICE QUALITY (784.49) [facility] Office Visit On: 21-May-2011 11:17 Encounter Reason: Follow up, Diagnostic Procedure Results - Diagnostic tests include ultrasound (05/19/11).Encounter Diagnosis: Uterine fibroid (218.9) End: 21-May-2011 11:50 [facility] Office Visit On: 14-May-2011 10:09 Encounter Reason: Follow up for chronic medical issues - The patient feels well with minor complaints, has good energy level and is sleeping well. Patient has been compliant with instructions. Current medication use: no End: 14-May-2011 12:29 side effects and compliant with dosing regimen. Patient sleeps 6 hours per night. Nutrition: balanced diet and no supplemental vitamins & iron. The medical issues the patient is following up for include All identified problems below. Encounter Diagnosis: Hypothyroidism(244.9), HYPERTENSION, BENIGN ESSENTIAL (401.1), Hyperlipidemia (272.4), Uterine fibroid (218.9), Hematuria (599.7) [facility] Office Visit On: 12-Mar-2011 10:56 Encounter Reason: new patient female physical - Last seen less than 1 month ago. General health: feels well with minor complaints, has good energy level and is sleeping well. The patient's appetite is normal. Nutrition: End: 12-Mar-2011 12:34 normal/adequate. Exercises 0 days per week. Sleeps on average 6 hours per night. Normal bowel and bladder habits. Safety measures include appropriate use of safety belts and home smoke detectors. There are no current emotional problems. screening, Pap smear (2 yrs).Encounter Diagnosis: Hypothyroidism(244.9), HYPERTENSION, BENIGN ESSENTIAL (401.1), Tinea versicolor (111.0) [facility]
--- OUTSIDE RECORDS SUMMARY | 2018-06-26 09:53 | XMS RPT_ITS ---
:1970 Author Organization OHIP Care Team Providers Name Role Phone Elsie Padron DO Attending Unavailable Elsie Padron DO Referring Unavailable Elsie Padron DO Consulting Unavailable Elsie Padron Attending Unavailable Elsie Padron Referring Unavailable Elsie Padron Primary Care Unavailable PROBLEMS PROBLEMS No Problem Records FoundPROCEDURES PROCEDURES No Procedure Records FoundRESULTS RESULTS THYROID Observed: 04/22/2018 Status: F Source: DODGE 10:20 AM [facility] REPOSITORY [facility] Imaging Services [address] [place] [id number] Thyroid MR#: [id number] Acct: [id number] Name: RAMONE ALEXANDER Rep #: [id number] : 1970 F 47 From: Jean-Pierre Ceballos MD PCP: Elsie Padron DO Status: REG CLI Study: Thyroid Date of Exam: 04/22/18 Exam# [id number] Ordering Dr: Elsie Padron DO HISTORY: NODULE TECHNIQUE: Keen scale and color doppler imaging was performed of the thyroid gland. COMPARISON: None FINDINGS: # of images incl. paperwork: 58 RIGHT THYROID LOBE: 4.4 x 1.6 x 1.5 cm. Homogeneous echotexture with normal vascularity. 0.4 cm solid appearing avascular hypoechoic to thyroid parenchyma nodule in the posterior, mid pole. 0.5 cm hyperechoic solid-appearing avascular nodule more inferiorly and also posterior in the mid pole. LEFT THYROID LOBE: 4.2 x 1.7 x 1.3 cm. Homogeneous echotexture with normal vascularity. No thyroid nodules are present. In the left lobe ISTHMUS: 0.4 cm thick. No nodules. US/Thyroid IMPRESSION: 2 subcentimeter nodules in the right lobe of the thyroid gland. at 2323 Reported and signed by: Jean-Pierre Ceballos MD Electronically Signed: Jean-Pierre Ceballos, at 23:22 EST Tel , Service support , CC: Elsie Padron DO Mobility Specialist: Signed ALLERGIES ALLERGIES No Allergies Records FoundENCOUNTERS ENCOUNTERS ADMIT/DISCHARGE ACCOUNT ADMITTING ENCOUNTER LOCATION SOURCE NUMBER CLASS 04/22/2018 [id number] Amb[place] ing:[place] Repository 04/18/2018 [id number] Ambulatory Building:[facility] [place] Practices Repository PAYERS PAYERS ENCOUNTER GUARANTOR PAYER SUBSCRIBER SOURCE 04/22/2018 RAMONE S Primary Insurance:[facility] RAMONE S Collette [id number] PACKAGE PLANPolicy HOCHSTETLERDOB: [facility] Number: 0Effective [id number] PENA, Date:2018-04-19 Repository de [address]Jty: () 04/22/2018 Secondary NOT GIVENUNK [place] Insurance:SELF PAY [facility] Number: Effective Repository Date:2018-04-19 04/18/2018 Ramone S Primary [facility] HochstetlerDOB: Insurance:[facility] HealthstetlerDOB: Repository [id number] [address] Number: [id number] [place] Effective Date: [address] [facility] CenterMacrina Pena, [id number] Name:Halima P[place] [id number]: [place] [id number]: (HP)Tel: [phone] (WP)
== END ==
PROVIDERS: Family Provider Internal Medicine; PCP Internal Medicine; Referring Provider Internal Medicine; Visit Provider Internal Medicine
DX: E04.1 Nontoxic single thyroid nodule (principal)
CPT/HCPCS: 76536

== ENCOUNTER → 2018-06-05 11:26 | Outpatient (CLI) | payer SELFPAY ==
--- NOTE | 2018-06-05 11:41 | CT_ITS ---
STUDY: CT ABDOMEN AND PELVIS WITHOUT CONTRAST REASON FOR EXAM: Female, 47 years old. Left flank pain RADIATION DOSAGE (If Supplied By Facility): CTDIvol = ( 15.53 ) mGy, DLP = ( 795.60 ) mGycm TECHNIQUE: Transaxial images were obtained from the dome of the diaphragm to the symphysis pubis without oral contrast, and without intravenous contrast. Sagittal and coronal images were reconstructed. Individualized dose optimization techniques were used for this CT. COMPARISON: None. FINDINGS: The visualized lung bases are unremarkable. The visualized portions of the heart are within normal limits. There is hepatomegaly with diffuse hepatic enlargement. There are surgical clips in the gallbladder fossa consistent with a prior cholecystectomy. Normal spleen. Normal pancreas. Normal bilateral adrenal glands. Normal right kidney. There is mild hydronephrosis on the left with slight hydroureter. However, there is no definite stone in the ureter. No evidence of stone in the bladder. Normal visualized stomach. Normal small intestine. There are multiple colonic diverticula consistent with diverticulosis. There is non-visualization of the appendix. Normal abdominal aorta. Normal inferior vena cava. Normal retroperitoneum. Normal urinary bladder. Enlarged uterus. Calcified fibroids. Normal abdominal wall. There are diffuse degenerative changes of the visualized lumbar spine. CT/Abdomen/Pelvis without Cont IMPRESSION: Mild left hydronephrosis and left hydroureter. No definite stone in the left kidney or ureter or bladder. Maybe patient has passed a stone recently. Enlarged uterus with calcified fibroids Electronically Signed: Mesfin Dalton DO at 12:26 EST Tel , Service support ,
== END ==
PROVIDERS: Family Provider Internal Medicine; PCP Internal Medicine; Referring Provider Nurse Practitioner Gerontology; Visit Provider Nurse Practitioner Gerontology
DX: M54.9 Dorsalgia, unspecified (principal)
CPT/HCPCS: 74176

== ENCOUNTER 2018-06-05 21:04 | Emergency (ER) | payer OTHER, SELFPAY ==
[2018-06-05 21:06] VITALS: BP 153/100; PULSE 103; RESP 18; TEMP 36.8; O2SAT 95; BMI 33.6
[2018-06-05 21:36] LABS: Mucous, Urine 0 SEEN /hpf (<or=2+)
[2018-06-05 21:40] LABS: Color, Urine Yellow (Yellow); Glucose, Dipstick Normal (Normal); Ketone-Dipstick Negative (Negative); Leukocyte Esterase-Dipstick 500 /ul (Negative); Nitrite-Dipstick Negative (Negative); Occult Blood-Urine 250 /ul (Negative); Protein-Dipstick 15 mg/dl (Negative); Urine Bilirubin Dipstick Negative (Negative); Urine Clarity Cloudy (Clear); Urine Urobilinogen Normal (Normal)
[2018-06-05] MEDS: 0.9% Normal Saline 1,000 ML 250 ML IV (21:40)
[2018-06-05] MEDS: Ketorolac 30 MG/ML Syringe IV (21:40)
[2018-06-05] MEDS: Ondansetron 4 MG/2 ML Vial IV (21:40)
[2018-06-05 21:49] LABS: Squamous Epithelial Cells - UA 0-5 SEEN /hpf (5-10)
[2018-06-05 21:51] LABS: Red Blood Cells-Urine 25-50 SEEN /hpf (0-5)
[2018-06-05 21:52] LABS: Bacteria RARE /hpf (None Seen); White Blood Cells 0-5 SEEN /hpf (0-5)
[2018-06-05 22:02] LABS: Anion Gap 7 (5-15); BUN 16 mg/dL (7-18); BUN/Creat Ratio 23.4 RATIO (10-20); Calcium,Total 8.7 mg/dL (8.5-10.1); Chloride 105 mmol/L (98-107); Creatinine, Serum 0.68 mg/dL (0.55-1.02); EST Glomerular Filtration Rate 98 mL/min (>60); Est Glom Filt Rate - Afr Amer 119 mL/min (>60); Estimated Creatinine Clearance 90.22 ml/min; Glucose 108 mg/dL (74-106); Potassium 3.5 mmol/L (3.5-5.1); Sodium Level 139 mmol/L (136-145)
--- NOTE | 2018-06-05 22:35 | ED.VISSUMM ---
- ER Visit Summary Date of Service: 06/05/18 Chief Complaint: [] History of Present Illness: The patient is a 47 F [] Physical Examination: [] Test Results: [] Emergency Department Course and Treatment: [] Treatment Plan: [] Disposition: [] Impression: [] This note was generated with [employer] dictation software. It may contain incorrect words, spelling, and punctuation that were not noted in review of the chart prior to signing ED Disposition - Plan for ED Patient: Instructions: ED Stone Renal Passed Referrals: Dariel Escobedo MD [STAFF PHYSICIAN] -
[2018-06-05] MEDS: oxyCODONE 5 MG Tablet PO (23:14)
[2018-06-05 23:25] VITALS: BP 132/54; PULSE 78; RESP 16; O2SAT 96
== END 2018-06-05 23:25 | disposition home or self-care (01) ==
PROVIDERS: Emergency Provider Emergency Medicine; Family Provider Internal Medicine; PCP Internal Medicine
DX: N13.2 Hydronephrosis with renal and ureteral calculous obstruction (principal)
CPT/HCPCS: 80048; 81001; 96361; 96374; 96375; 99284; J7030; A4216; J2405

== ENCOUNTER → 2018-06-12 11:58 | Outpatient (CLI) | payer SELFPAY ==
[2018-06-05 21:06] VITALS: BMI 33.6
--- NOTE | 2018-06-12 12:13 | US_ITS ---
STUDY: RENAL ULTRASOUND - COMPLETE REASON FOR EXAM: Female, 47 years old. Flank pain TECHNIQUE: Ultrasound evaluation of the kidneys was performed with real-time and static degroot-scale imaging. COMPARISON: None. FINDINGS: RIGHT KIDNEY: Normal location of the right kidney, which is normal in size. The right kidney measures 12.9 x 6.2 x 4.8 cm. There is a normal cortex of the right kidney. The renal cortex measures 1.6 cm. There is no right renal mass or cyst. There is a nonobstructing 7 x 9 mm stone. There is no right hydronephrosis. DISTAL RIGHT URETER: There is non-visualization of the distal right ureter. There is no demonstrated right ureterovesical junction calculus. There is a visualized right ureteral jet. LEFT KIDNEY: Normal location of the left kidney, which is normal in size. The left kidney measures 11.5 x 6 x 5 cm. There is a normal cortex of the left kidney. The renal cortex measures 1.4 cm. There is no left renal mass or cyst. There is a nonobstructing 6 mm stone. There is no left hydronephrosis. DISTAL LEFT URETER: There is non-visualization of the distal left ureter. There is no demonstrated left ureterovesical junction calculus. There is a visualized left ureteral jet. AORTA: There is no elongation or tortuosity of the abdominal aorta. I.V.C.: The IVC is patent. BLADDER: The bladder sonographically normal US/Kidney and Bladder IMPRESSION: Bilateral nonobstructing nephrolithiasis, otherwise unremarkable study Electronically Signed: Vargas Vale MD at 16:55 EDT , Service support ,
[2018-06-16 09:07] LABS: HPV Reflexed? NOT INDICATED
== END ==
PROVIDERS: Family Provider Internal Medicine; PCP Internal Medicine; Referring Provider Nurse Practitioner Adult Health; Visit Provider Nurse Practitioner Adult Health
DX: N13.30 Unspecified hydronephrosis (principal); Z12.4 Encounter for screening for malignant neoplasm of cervix
CPT/HCPCS: 76770; 88175; G0145

== ENCOUNTER → 2019-06-08 12:28 | Outpatient (CLI) | payer SELFPAY, OTHER ==
--- NOTE | 2019-06-08 12:34 | US_ITS ---
STUDY: ULTRASOUND TRANSVAGINAL CLINICAL: Female, 48 years old. abnl bleeding, fibroids TECHNIQUE: Transvaginal COMPARISON: 05/19/2011 FINDINGS: Normal uterine size measuring 9.4 x 9.3 x 6.2 cm in maximal craniocaudal dimension. 3.4 cm oval hypoechoic mass in the posterior fundus the uterus consistent with a subserosal fibroid. Inferior to this is a 1.8 cm oval hypoechoic mass consistent with metatarsus subserosal fibroid. There is a 3.3 cm peripherally calcified fibroid in the uterus. Another 1.6 cm subserosal calcified fibroid in the uterus.. Normal endometrial thickness measuring 6 mm. There are no endometrial masses, and there is no fluid in the endometrial cavity. Normal uterine cervix. Normal right ovary, measuring 2.3 x 2.1 x 1.8 cm. There are multiple follicles without a dominant cyst. Normal left ovary, measuring 3.3 x 1.6 x 1.9 cm. There are multiple follicles without a dominant cyst. There is no free fluid in the pelvis. Polycystic ovary disease: No. US/Transvaginal Non- IMPRESSION: Enlarged fibroid uterus. Electronically Signed: Mauro Garrison MD at 15:20 EST Tel , Service support ,
== END ==
PROVIDERS: PCP Internal Medicine; Referring Provider Obstetrics & Gynecology; Visit Provider Obstetrics & Gynecology
DX: N92.0 Excessive and frequent menstruation with regular cycle (principal)
CPT/HCPCS: 76830

== ENCOUNTER → 2019-06-18 13:19 | Outpatient (CLI) | payer OTHER, SELFPAY ==
--- NOTE | 2019-06-18 12:15 | EMB_PTH ---
PATIENT: RAMONE ALEXANDER LOC: [facility] U#:[id number] AGE/SX: 54/F ROOM: RE06/18/[address]: Dr. Guerline Moreira MD : 1970 BED: DIS: SPEC #: [id number] RECD: 06/18/19 14:55 STATUS: TABITHA REIdris #: [id number] CHERYL: 06/18/19 12:[address]: Guerline Oconnor DEPT: SURGICAL PATHOLOGY RECD BY: Tor Zambrano ENTERED: 06/19/19 07:57 SP TYPE: ENDOM BX/C RANDY DR: Dr. Elsie Padron DO Tissues: Endometrium, NOS Procedures: Surgery Specimen Level IV HEADER OPERATION: Endometrial biopsy PRE-OP DIAGNOSIS: N92.0 TISSUE SUBMITTED: Endometrial biopsy MICROSCOPIC DIAGNOSIS Endometrium, biopsy: Secretory endometrium. AM:filemon 06/20/19 MICROSCOPIC DESCRIPTION Slides are reviewed. GROSS DESCRIPTION Received in fixative is one container labeled with the patient's name and designated EMB. The specimen consists of multiple irregular fragments of light davis soft tissue that in aggregate measure 2.5 x 2 x 0.2 cm. The specimen is totally submitted in one cassette. / SJ:filemon 06/19/19 TC:5 CPT: 58186
== END ==
PROVIDERS: PCP Internal Medicine; Visit Provider Obstetrics & Gynecology
DX: N92.0 Excessive and frequent menstruation with regular cycle (principal)
CPT/HCPCS: 88305

== ENCOUNTER 2019-10-18 10:56 | Observation (INO) | payer SELFPAY, OTHER ==
--- NOTE | 2019-10-12 10:56 | EKG12_ITS ---
Test Reason : PREOP Blood Pressure : / mmHG Vent. Rate : 077 BPM Atrial Rate : 077 BPM P-R Int : 156 ms QRS Dur : 076 ms QT Int : 382 ms P-R-T Axes : 015 013 016 degrees QTc Int : 432 ms Normal sinus rhythm Normal ECG Confirmed by ARMANI PARKS, STUART ([id number]), editorial director LUDWIG FLORIAN ([id number]) on 10/15/2019 8:26:58 AM Referred By: Guerline Moreira Confirmed By:STUART LOMELI MD
[2019-10-12 11:03] LABS: Hematocrit 41.8 % (37-47); Mean Corp Hgb Conc 33.5 g/dL (32-36); Mean Corpuscular Volume 89.5 fL (81-99); Mean Platelet Vol. 9.2 fl (6.2-12.0); Platelet Count 240 K/mm3 (150-450); RBC Distribution Width CV 12.4 % (11.6-14.6); RBC Distribution Width SD 40.3 fl (35.1-43.9); Red Blood Count 4.67 M/mm3 (4.2-5.4); White Blood Count 6.6 K/mm3 (4.4-11.0)
[2019-10-12 11:14] LABS: Prothrombin Time (Protime)PT. 12.9 SECONDS (11.7-14.9)
[2019-10-12 11:15] LABS: Partial Thromboplast Time 30.2 Seconds (24.1-36.2)
[2019-10-12 11:45] LABS: Thyroid Stim Hormone (TSH) 1.45 uIU/mL (0.358-3.74)
[2019-10-18] VITALS (15 sets, daily range): BP systolic 89–159; BP diastolic 45–90; PULSE 64–107; RESP 14–18; TEMP 36.2–37.1; O2SAT 94–100; BMI 33.0
[2019-10-18 06:13] LABS: Internal QC Validated? YES +Cl - CLEAR BKGD; Pregnancy, Urine Negative Negative
[2019-10-18] MEDS: Lactated Ringers 1,000 ML 125 ML IV ×5 (06:33→18:53)
--- NOTE | 2019-10-18 07:13 | PCM.HPOB.BLA ---
- Problem List (1) Excessive and frequent menstruation with regular cycle Status: Acute (2) Uterine fibroid Status: Acute History and Physical Date of Admission: 10/18/19 Surgical History and Physical Date: 10/17/2019 Name: RAMONE ALEXANDER Age: 49 Date of : 1970 Ramone Alexander, a 49 year old female 3 0 1 0 3, presents for [facility], on October 18, 2019 at 9:45. --Ramone has a hx uterine fibroids with c/o menorrhagia refractory to medical management. She is scheduled for LAV with bilateral salpingectomy. MEDICATIONS HISTORY: ALLERGIES: NKDA, Pcn, Gi distress, Penicillins, Nausea, Aspirin and Tachycardia Infections - Chicken pox Illnesses - no serious past illnesses Accidents - None Hospitalizations - Childbirth and see surgery fibroids; Review of Systems: GENERAL - Denies fever, or chills SKIN - Denies skin changes EYES - Denies visual changes EARS - Denies difficulty hearing NOSE - Denies nasal congestion or bleeding MOUTH - Denies sore throat or difficulty swallowing NECK - Denies pain or swelling RESPIRATORY - Denies shortness of breath or wheezing CARDIOVASCULAR - Denies palpitations or chest pain GASTROINTESTINAL - Denies nausea, vomiting, diarrhea, constipation GENITOURINARY - heavy menses MUSCULOSKELETAL - Denies joint or muscle pain NEUROLOGICAL - Denies localized numbness or weakness PSYCHIATRIC - Denies depression or anxiety ENDOCRINE - Denies heat or cold intolerance, weight loss or gain HEMATO-IMMUNOLOGIC - Denies excesive bleeding with cuts SOCIAL HISTORY: Alcohol Use - denies drinking Smoking - denies smoking Diet - balanced Diet Lifestyle - high stress lifestyle Exercise - active Seat Belt Use - always Employer - homemaker Illicit Drug Use - denies use of street drugs Sexual Activity - Spouse-Sig Other Name - Curly Spouse-Sig Other Occupation - [employer] Children Name(s) - Prabha Raza Michelle Control - vasectomy FAMILY HISTORY: Father: HTN and DM II. MENSTRUAL HISTORY: LMP Known?- DefiniteAmount/Duration - 3-4, Regularity - Regular, Frequency - monthly days, LMP - 10/01/19, Age Onset Menarche - 14 PAST PREGNANCIES: Total Pregnancies - 4; Full Term Pregnancies - 3; Premature - 0; Abortions, Induced - 0; Abortions, Spontaneous - 1; Ectopics - 0; Multiple Births - 0; Living Children - 3 SURGICAL HISTORY: 1. Appendectomy ; - 2. cholecystectomy ; - 3. D and C, 2002 ; - SAB PHYSICAL EXAM BP- 140/88 Sitting, Right arm, regular cuff Temp- 98.2 Taken Orally Weight- 194.82838 lbs Height- 63.00 inch BMI:34.44 CONSTITUTIONAL - well nourished, well developed and in no distress SKIN - no rash or lesions HEENT - normocephalic, atraumatic, sclerae anicteric NECK - no nuchal rigidity LUNGS - normal respiratory rate and rhythm EXTREMITIES - no edema and no deformities NEUROLOGICAL - normal gait, normal balance, normal motor PSYCHIATRIC - alert, oriented to time, place, and person and mood appropriate External Genitial Vagina - non-tender without lesions Urethra/Urethral Meatus - non-tender Bladder - non-tender Vagina - vaginal vu are pink and moist without loss of rugae and no evidence of atropy Cervix - without cervical motion tenderness and has normal size and features without evident lesions Uterus - enlarged uterus 10 wks, wt 175-275 g, large posterior fibroid with anterior displacement of the cervix Adnexa - clear without massess or tenderness 06/18/19 showed secretory endometrium or EMB. 06/12/18 PAP NILM 07/03/28 ULTRASOUND UTERUS: 9.9 x 6.8 x 9 cm and is retroverted. There are multiple fibroids seen. 1-left/calcified-3.4 x 2.8 x 2.4 cm, 2-posterior/rt/calcified-1.5 x 1.3 x 2 cm, 3-fundal and encroaching into the endometrium-3.7 x 3.4 x 4 cm. ENDOMETRIAL ECHO: .7 cm. RIGHT OVARY: 2.9 x 1.9 x 1.3 cm. LEFT OVARY: 3 x 1.5 x 1.9 cm. Laboratory Tests 10/18/19 10/12/19 10/12/19 Range/Units 05:40 10:45 10:45 WBC (4.4-11.0) K/mm3 RBC (4.2-5.4) M/mm3 Hgb (12.0-15.0) g/dL Hct (37-47) % MCV (81-99) fL MCH (27.0-32.0) pg MCHC (32-36) g/dL RDW Std Deviation (35.1-43.9) fl RDW Coeff of Marlene (11.6-14.6) % Plt Count (150-450) K/mm3 MPV (6.2-12.0) fl PT (11.7-14.9) SECONDS INR APTT (24.1-36.2) Seconds TSH 1.45 (0.358-3.74) uIU/mL Urine Test Negative Negative COVID-19 (JAMES) (Not Detect) Blood Type O POSITIVE Antibody Screen NEGATIVE 10/12/19 10/12/19 10/12/19 Range/Units 10:45 10:45 10:30 WBC 6.6 (4.4-11.0) K/mm3 RBC 4.67 (4.2-5.4) M/mm3 Hgb 14.0 (12.0-15.0) g/dL Hct 41.8 (37-47) % MCV 89.5 (81-99) fL MCH 30.0 (27.0-32.0) pg MCHC 33.5 (32-36) g/dL RDW Std Deviation 40.3 (35.1-43.9) fl RDW Coeff of Marlene 12.4 (11.6-14.6) % Plt Count 240 (150-450) K/mm3 MPV 9.2 (6.2-12.0) fl PT 12.9 (11.7-14.9) SECONDS INR 1.0 APTT 30.2 (24.1-36.2) Seconds TSH (0.358-3.74) uIU/mL Urine Test Negative COVID-19 (JAMES) Not Detected (Not Detect) Blood Type Antibody Screen ASSESSMENT/PLAN: 1. Excessive And Frequent Menstruation With Regular Cycle and Excessive Bleeding In The Premenopausal Period Plan for LAVH BS with ovarian conservation Procedure Criteria Procedure Type: Elective - Patient seen and evaluated this morning with no interval change in PMH. Given opportunity to ask questions and questions answered to her satisfaction. Proceed as planned. COVID Risk Discussion: The surgeon/proceduralist and patient have discussed in detail the risk of exposure to and/or potential harm posed by the COVID-19 virus with having a surgery/procedure at this time versus the risk of delaying the surgery/procedure. It is not possible to know either the risk of delaying the surgery or procedure or chance of getting an infection with perfect accuracy, but a joint decision was made between the patient and the surgeon/proceduralist to proceed at this time with the scheduled surgery/procedure as indicated on the consent form.
[2019-10-18] MEDS: Heparin Injection (Vial) 5,000 UNIT/ML VIAL 5000 UNIT SC ×3 (07:26→22:59)
--- NOTE | 2019-10-18 07:30 | HYST_PTH ---
PATIENT: RAMONE ALEXANDER LOC: [facility]3 U#:[id number] AGE/SX: 49/F ROOM: MS310 RE10/18/[address]: Dr. Guerline Moreira MD : 1970 BED: 1 DIS: 10/19/2019 SPEC #: [id number] RECD: 10/18/19 10:35 STATUS: TABITHA MARTINEZIdris #: [id number] CHERYL: 10/18/19 07:[address]: Guerline Oconnor DEPT: SURGICAL PATHOLOGY RECD BY: Roni Sutherland ENTERED: 10/18/19 10:51 SP TYPE: HYSTERECT OTHR DR: Dr. Elsie Padron DO Tissues: Uterus, NOS Procedures: Surgery Specimen Level V HEADER OPERATION: Hysterectomy, LAVH, salpingectomy PRE-OP DIAGNOSIS: Excessive and frequent menstruation with regular cycle, uterine fibroid TISSUE SUBMITTED: Uterus, cervix and bilateral fallopian tubes MICROSCOPIC DIAGNOSIS Uterus, hysterectomy: Cervix - squamous metaplasia and chronic inflammation. Endometrium - secretory endometrium. Myometrium - leiomyomas with degenerative change and focal adenomyosis. Right and left fallopian tubes - benign paratubal cysts. AM:filemon 10/19/19 MICROSCOPIC DESCRIPTION Slides are reviewed. GROSS DESCRIPTION Received in fixative is one container labeled with the patient's name and designated uterus. The specimen consists of a uterus with attached bilateral fallopian tubes. The uterus with cervix measures 13 x 10 x 6 cm and weighs 252 gm. Present free in the container is an irregular fragment of rubbery, pink-davis tissue measuring 6.5 x 5 x 3 cm. The ectocervix is grossly unremarkable. The endocervical canal measures 2.5 cm in length. The specimen has previously been opened. The endometrial cavity has been disrupted by previous opening and measures 3 x 2 cm. The pinkish-davis endometrium measures up to 0.2 cm in thickness. The myometrium measures 3.2 cm in length and is distorted by multiple spherical, rubbery nodules ranging in size from 0.2 to 3 cm in greatest dimension. The nodules have a surface that displays a whorled appearance with focal calcific and degenerative change. The right and left fallopian tubes are similar in appearance with average lengths of 7.5 cm and average diameters of 0.6 cm. Both fallopian tubes contain paratubal cysts ranging in size from 2.2 to 2.5 cm in greatest dimension. The fimbriated ends have a normal villous appearance. Hogshead Stock Clerk sections are submitted in 11 cassettes as follows: 1 - anterior cervix, 2 - posterior cervix, 3 & 4 - anterior uterine wall, 5 & 6 - posterior uterine wall, 7 - largest myometrial mass, 8 - second largest myometrial mass, 9 - third largest myometrial mass, 10 - right fallopian tube and paratubal cyst, 11 - left fallopian tube and paratubal cyst. / AM:filemon 10/18/19 TC:1 CPT: 41540
[2019-10-18] MEDS: Vasopressin 20 UNITS/ML Vial ×2 (08:16→08:53)
[2019-10-18] MEDS: Bupivacaine Mpf 0.5% 30 ML VIAL (10:05)
--- NOTE | 2019-10-18 10:12 | PCM.OPRPT ---
Problem List (1) Excessive and frequent menstruation with regular cycle Status: Acute (2) Uterine fibroid Status: Acute Qualifiers: Uterine leiomyoma location: intramural Qualified Code(s): D25.1 - Intramural leiomyoma of uterus Report of Operation Date of Procedure: 10/18/19 Pre-Operative Diagnosis: 1. Excessive and frequent menstruation with regular cycle. 2. Uterine fibroids Post-Operative Diagnosis: 1. Excessive and frequent menstruation with regular cycle number. 2. Uterine fibroids Surgery/Procedure Performed:: Laparoscopic-assisted vaginal hysterectomy Description of Surgical Findings:: 10-week size uterus with multiple fibroids, bilateral normal appearing tubes and ovaries respiratory practitioner: Romana Houston Type of Anesthesia:: General Anesthesiologist: Homero Hollis Estimated Blood Loss (mL): 250 Fluids Replaced: 1600 mL Description of Procedure: Indications: 49-year-old female with history of menorrhagia in the setting of uterine fibroids refractory to medical management. She is counseled regarding management options and opted to proceed with hysterectomy for definitive management. Procedural risks, benefits, indications and alternatives were reviewed. Patient desired to proceed. Procedure: Patient was brought to the operating room and signed was performed. She is placed in the dorsal supine position and induced under general anesthesia. Her arms were tucked at her sides and she was repositioned into dorsal lithotomy. The perineum and abdomen were prepped and draped in sterile fashion. A Farley catheter was placed within the bladder. The patient was placed into high lithotomy and speculum placed vaginally. The cervix was grasped the anterior cervical lip and uterus sounded to 10 cm. A ZUMI uterine manipulator was placed. The tenaculum and speculum were removed. The patient was placed into low lithotomy attention turned to the abdomen. An inferior umbilical incision was made and a Veress needle introduced abdominally with successful hanging drop test and no aspirate. The abdomen was insufflated to 15 mmHg. The Veress needle was removed and trocar placed under laparoscopic guidance confirming entry into the abdominal cavity. The patient was placed into Trendelenburg and right and left lower quadrant tap blocks were performed using half percent bupivacaine under laparoscopic guidance. Incisions were placed under transillumination and 5 mm ports were placed at each of these sites as well. A suprapubic incision was made and an additional port placed there as well. I proceeded with inspection there was normal anatomy apart from the enlarged fibroid uterus. Few adhesions of the sigmoid to the pelvic sidewall prevented visualization. These adhesions were lysed sharply and bluntly. The left tubal fimbria was identified and salpingectomy performed with electrocoagulation and transection of the mesosalpinx using the Enseal device to the level of the uterine cornua. The left round ligament was clamped, electro coagulated and cut also using the Enseal device and the broad ligament was opened with skeletonization of the uterine vessels and creation of the left bladder flap. The posterior left broad ligament was opened and the utero-ovarian ligament was clamped, coagulated and transected using the Enseal device. The left uterine arteries were coagulated using the Enseal device. In similar fashion right salpingectomy was performed and followed by electro coagulation and transection of the round ligament with opening of the broad ligament, skeletonization of the uterine vessels and completion of the bladder flap. The right uterine arteries were also electrocoagulated. Attention was then turned to the vagina and the abdomen was desufflated. A weighted speculum was placed vaginally and the uterine manipulator was removed. The cervix was grasped using a Sawant tenaculum. A circumferential incision was made along the cervicovaginal junction using the scalpel. The vesicovaginal membrane was dissected and a curved Geovanna placed for anterior retraction. The anterior cul-de-sac peritoneum however was not yet visualized. Attention was turned posteriorly and the rectovaginal septum was dissected and the posterior cul-de-sac entered sharply. A long weighted speculum was then placed into the posterior cul-de-sac. The left and right uterosacral ligaments were serially Angelica clamps, cut and suture ligated using 0 Vicryl. 0 Vicryl was used for all sutures in this case. The cardinal ligaments and uterine vessels were subsequently clamped, cut and suture ligated. As the uterus was bulky I proceeded to bivalve the cervix and distally uterus, then subsequently toward the uterus with decompression of the lower uterine segment and delivery of the uterus and tubes bilaterally. There was some bleeding that appeared to be coming from the peritoneum thus the cuff was partially reefed posteriorly. A modified Lu culdoplasty was performed pursestring the uterosacral ligaments with the pelvic peritoneum. The vaginal cuff was closed using serial figure of 8 sutures. Attention was turned abdominally and laparoscopy again performed demonstrating good hemostasis terminally. The event was desufflated and trochars were removed. The skin was closed using 4-0 Monocryl by the PASSENGER BARGE MASTER under my supervision. Half percent bupivacaine was injected for additional analgesia. Steri-Strips and OpSite were placed over the incisions. The Farley catheter was removed. The patient was placed into dorsal supine position, awakened, extubated and transferred to the recovery room without complication. Sponge and needle counts were correct x2. Patient tolerated the procedure well. - Complications None - Admit VTE Documentation VTE Present on Admission: No VTE Mechan Device Prophylaxis: SCD's VTE Pharm Prophylaxis ordered?: Yes
--- NOTE | 2019-10-18 11:02 | DCINST_ITS ---
Discharge Diet: No Restrictions Discharge Activity: Return to Normal Activity, May not drive while taking narcotic pain medications., May Shower, - - No tub bath for 2 weeks May resume sexual activity in: 6-8 weeks Lifting Restrictions: 10 lb Call your doctor if your incision/area has: Continuous Slow Oozing, Sudden Increased Bleeding, Increased Pain/ Swelling, Increased Redness, Foul Smelling Discharge Call your doctor if you observe: Fever of 101 or Higher, Inability to urinate, Inability to have a bowel movement, Using more than one pad per hour, Shortness of breath, Chest pain, Calf discomfort, Uncontrolled pain Suture Line Care: Avoid Pulling/Pushing, Avoid Pinching/Bending Remove Dressing in (days):: 1 - 24 hours Cleanse incision/area with: Soap & Water Allergies/Adverse Reactions: Allergies aspirin Allergy (Verified 10/18/19 06:04) Other thins blood Penicillins [PCN] Allergy (Verified 10/18/19 06:04) Nausea Medications to take at Discharge Docusate Sodium [Colace] 100 mg PO BID PRN PRN #60 cap 10/19/19 Ibuprofen 600 mg PO TID PRN #30 tab 10/19/19 Oxycodone [Oxyir] 1 tab PO Q6H PRN PRN 7 Days #28 tab 10/19/19 The following prescriptions were given: Docusate Sodium [Colace] 100 mg PO BID PRN PRN #60 cap PRN Reason: Constipation Transmission Status: Pending to [facility] Ibuprofen 600 mg PO TID PRN #30 tab PRN Reason: pain Transmission Status: Pending to [facility] Oxycodone [Oxyir] 1 tab PO Q6H PRN PRN 7 Days #28 tab PRN Reason: Pain Score 4-10/10 Transmission Status: Sent to [facility] Primary Care Physician: Elsie Padron DO [Primary Care Provider] - Test Results: Test results from this visit will be discussed in further detail at your follow- up appointment, if applicable. Please Follow Up With: Guerline Kumar MD When: 1-2 weeks
[2019-10-18] MEDS: Ketorolac 30 MG/ML Syringe IV ×2 (12:56→18:52)
[2019-10-18] MEDS: 0.9% Saline Lock 10 ML Syringe IV ×2 (12:56→18:52)
[2019-10-18] MEDS: Lactated Ringers 500 ML 999 ML IV (12:57)
[2019-10-18] MEDS: Acetaminophen 325 MG Tablet 650 MG PO ×2 (17:04→22:59)
[2019-10-19] MEDS: Ketorolac 30 MG/ML Syringe IV ×2 (01:29→06:03)
[2019-10-19 03:00] VITALS: BP 125/75; PULSE 65; RESP 16; TEMP 36.9; O2SAT 96
[2019-10-19] MEDS: Lactated Ringers 1,000 ML 125 ML IV (03:44)
[2019-10-19] MEDS: Heparin Injection (Vial) 5,000 UNIT/ML VIAL 5000 UNIT SC (06:03)
[2019-10-19] MEDS: Acetaminophen 325 MG Tablet 650 MG PO (06:04)
[2019-10-19 06:49] LABS: Hematocrit 34.4 % (37-47); Hemoglobin 11.4 g/dL (12.0-15.0); Mean Corp Hgb Conc 33.1 g/dL (32-36); Mean Corpuscular Hgb 30.2 pg (27.0-32.0); Mean Corpuscular Volume 91.2 fL (81-99); Mean Platelet Vol. 9.8 fl (6.2-12.0); Platelet Count 220 K/mm3 (150-450); RBC Distribution Width CV 12.6 % (11.6-14.6); RBC Distribution Width SD 41.7 fl (35.1-43.9); Red Blood Count 3.77 M/mm3 (4.2-5.4); White Blood Count 9.4 K/mm3 (4.4-11.0)
[2019-10-19 07:08] LABS: Creatinine, Serum 0.56 mg/dL (0.55-1.02); EST Glomerular Filtration Rate 125 mL/min (>60); Est Glom Filt Rate - Afr Amer 151 mL/min (>60); Estimated Creatinine Clearance 107.24 ml/min
[2019-10-19 07:20] VITALS: O2SAT 98
--- NOTE | 2019-10-19 08:20 | PN.OBGYN_ITS ---
Patient Problems: Active and Suspected Problems S/P hysterectomy (Acute) Excessive and frequent menstruation with regular cycle (Acute) Uterine fibroid (Acute) Subjective: No issues overnight. She is sore, but pain manageable. OOB and ambulating and voiding without difficulty. Tolerates regular diet. Passing flatus. - Physical Exam Vitals/I&O's: Vital Signs Temp Pulse Resp BP Pulse Ox 98.5 F 65 16 125/75 H 98 10/19/19 03:00 10/19/19 03:00 10/19/19 03:00 10/19/19 03:00 10/19/19 07:20 Oxygen Delivery Method Room Air Weight: 87.2 kg Body Mass Index (BMI) 33.0 Intake and Output for Last 24 Hours 10/17/19 10/18/19 10/19/19 23:59 23:59 23:59 Intake Total 4177.08 / 4777.08 2100 / 2100 Output Total 1425 / 1925 900 / 900 Balance 2752.08 / 2852.08 1200 / 1200 General: Alert, Oriented x3, Cooperative, No apparent distress HEENT: Atraumatic, Normocephalic Lungs: Clear to auscultation, Normal air movement Cardiovascular: Regular rate, Regular Rhythm, Normal S1, Normal S2 Abdomen: Bowel Sounds Present, Soft, Non Tender, Non-Distended, - - incisional dressings c/d/i Extremities: No edema, No Calf Tenderness Neurological: Neuro grossly intact Psych/Mental Status: Normal Affect, Appropriate, Alert and oriented to time, place, person, mood and affect Laboratory Results 10/19/19 05:52: WBC 9.4, RBC 3.77 L, Hgb 11.4 L, Hct 34.4 L, MCV 91.2, MCH 30.2, MCHC 33.1, RDW Std Deviation 41.7, RDW Coeff of Marlene 12.6, Plt Count 220, MPV 9.8 10/19/19 05:52: Creatinine 0.56, Estim Creat Clear Calc 107.24, Est GFR (MDRD) Af Amer 151, Est GFR (MDRD) Non-Af 125 Current Medications Acetaminophen (Tylenol) 650 mg PO Q6 [facility] Last Admin: 10/19/19 06:04 Dose: 650 mg Documented by: Heparin Sodium (Porcine) (Heparin Na) 5,000 unit SC Q8 [facility] Last Admin: 10/19/19 06:03 Dose: 5,000 unit Documented by: Lactated Ringer's () 1,000 mls @ 125 mls/hr IV .Q8H [facility] Last Admin: 10/19/19 03:44 Dose: 125 mls/hr Documented by: Ketorolac Tromethamine (Toradol (Bkc)) 30 mg IV Q6H [facility] Stop: 10/23/19 13:01 Last Admin: 10/19/19 06:03 Dose: 30 mg Documented by: Ondansetron HCl (Zofran) 4 mg IV Q4H PRN PRN PRN Reason: NAUSEA Oxycodone HCl (Oxyir) 5 - 10 mg PO Q4H PRN PRN PRN Reason: Pain Score 4-10/10 Sodium Chloride () 10 - 40 ml IV UD PRN PRN Reason: SALINE FLUSH Last Admin: 10/18/19 18:52 Dose: 10 ml Documented by: Medical Necessity - Tobacco Use Smoking Status: Never smoker Assessment/Plan All Active Problems S/P hysterectomy (Acute) Excessive and frequent menstruation with regular cycle (Acute) Uterine fibroid (Acute) POD#1 s/p GRANT BAUMAN doing well. -d/c home today
[2019-10-19 08:22] VITALS: BP 107/59; PULSE 98; RESP 18; TEMP 36.9; O2SAT 94
--- NOTE | 2019-10-19 10:36 | PHA.DC.MC ---
Pharmacy Service has performed discharge medication reconciliation and counseling for this patient. The patient was counseled on the following discharge medications and changes in medications for homegoing were reviewed. 1. Oxycodone 2. Ibuprofen 3. Docusate The Reason for Use, instructions for use, and potential side effects were reviewed for all new medications. The patient's questions regarding all of their medications were answered. The patient demonstrated some understanding but would benefit from further education and reinforcement. Home Medications Docusate Sodium [Colace] 100 mg PO BID PRN PRN #60 cap 10/19/19 Ibuprofen 600 mg PO TID PRN #30 tab 10/19/19 Oxycodone [Oxyir] 1 tab PO Q6H PRN PRN 7 Days #28 tab 10/19/19
== END 2019-10-19 11:11 | disposition home or self-care (01) ==
LOC: SDC 10-19 07:14 → MS3 10-19 07:14
PROVIDERS: Anesthesiology; Admitting Provider Obstetrics & Gynecology; PCP Internal Medicine; Referring Provider Obstetrics & Gynecology; Visit Provider Obstetrics & Gynecology
PROC: 0UT9FZZ Resection of Uterus, Via Natural or Artificial Opening With Percutaneous Endoscopic Assistance (ICD-10-PCS; CPT 58554; principal; 2019-10-18 07:05)
DX: D25.1 Intramural leiomyoma of uterus (principal); Z11.59 Encounter for screening for other viral diseases; N92.0 Excessive and frequent menstruation with regular cycle; N83.8 Other noninflammatory disorders of ovary, fallopian tube and broad ligament; E78.00 Pure hypercholesterolemia, unspecified
CPT/HCPCS: 00940; 58554; 36415; 81025; 82565; 84443; 85027; 85610; 85730; 86850; 86900; 86901; 87635; 88307; 93005; 96361; 96372; 96374; 96376; 99218; 99251; G2023; J7120; A4216; C1760; G0378; G0379; G0463; J2405; U0003

== ENCOUNTER 2020-04-14 15:01 | Observation (INO) | payer OTHER, SELFPAY ==
[2019-10-18 12:16] VITALS: BMI 33.0
[2020-04-14] VITALS (8 sets, daily range): BP systolic 146–192; BP diastolic 92–115; PULSE 85–126; RESP 17–20; TEMP 36.1–37.1; O2SAT 96–98; BMI 33.3; BMI 33.5
--- NOTE | 2020-04-14 15:23 | EKG12_ITS ---
Test Reason : WEAKNESS Blood Pressure : / mmHG Vent. Rate : 104 BPM Atrial Rate : 104 BPM P-R Int : 116 ms QRS Dur : 084 ms QT Int : 338 ms P-R-T Axes : 246 010 013 degrees QTc Int : 444 ms Unusual P axis and short MS; Consider Ectopic Atrial Rhythm vs. Junctional Rhythm Abnormal ECG Confirmed by CÉSAR PARKS, CY ([id number]), news video editor LUDWIG FLORIAN ([id number]) on 04/16/2020 8:20:54 AM Referred By: JAMIE Confirmed By:CY LINDSEY MD
[2020-04-14] MEDS: 0.9% Normal Saline 1,000 ML 1000 ML IV (15:39)
--- NOTE | 2020-04-14 15:43 | RAD_ITS ---
STUDY: X-RAY CHEST REASON FOR EXAM: Female, 49 years old. BELIEVES THAT SHE HAD COVID LAST WEEK BUT WAS NOT TESTED. COMPLAINS OF WEAKNESS AND NAUSEA. TECHNIQUE: Single AP portable view of the chest. COMPARISON: None. FINDINGS: The lungs are clear and expanded. There is no demonstrated pleural abnormality. Normal size heart. Normal mediastinum and janeen. Normal visualized pulmonary arteries. Normal visualized aortic arch and descending thoracic aorta. Normal visualized thoracic spine. Normal visualized ribs, clavicles, and shoulders. There is no demonstrated abnormality of the visualized soft tissue structures of the upper abdomen. RAD/Chest 1 View (Portable) IMPRESSION: Normal x-ray examination of the chest. Electronically Signed: Blake Murray MD at 16:50 EST , Service support ,
[2020-04-14 15:44] LABS: Absolute Lymphocyte Count 1.73 X10^3/uL (0.83-4.51); Absolute Neutrophil Count 4.7 X10^3/uL (2.0-7.7); Basophil# 0.02 X10^3/uL; Basophil% 0.3 % (0-1); Eosinophils% 1.4 % (0-5); Hematocrit 40.9 % (37-47); Hemoglobin 14.3 g/dL (12.0-15.0); Lymphocyte # 1.73 X10^3/ul (4.0); Lymphocyte % 24.7 % (19-41); Mean Corpuscular Hgb 30.1 pg (27.0-32.0); Mean Corpuscular Volume 86.1 fL (81-99); Mean Platelet Vol. 9.4 fl (6.2-12.0); Monocyte# 0.38 X10^3/uL; Monocyte% 5.4 % (0-10); NRBC Flagged by Analyzer 0 % (0-5); Neutrophil # 4.73 X10^3/uL (2.7-7.7); Neutrophil % 67.8 % (47-70); Platelet Count 250 K/mm3 (150-450); RBC Distribution Width CV 12.2 % (11.6-14.6); RBC Distribution Width SD 38.1 fl (35.1-43.9); Red Blood Count 4.75 M/mm3 (4.2-5.4)
--- NOTE | 2020-04-14 15:56 | ED.VISSUMM ---
- ER Visit Summary Date of Service: 04/14/20 Chief Complaint: Generalized weakness History of Present Illness: The patient is a 49 F presenting with generalized weakness and fatigue. She states this began on New '[place]. She states that she has been feeling just generalized weakness with lightheadedness. She denies syncope. Denies chest pain. She states she had mild abdominal pain but that has since resolved. She also complains of mild headache which is also resolved. She denies numbness or tingling. Denies vision or speech changes. Denies fever or cough. She believes she may have had Covid last week but was not tested. She denies vomiting or diarrhea. Denies other complaints. She was recently started on Lexapro and Ativan for anxiety. These medications were started after her symptoms started. Physical Examination: Vitals are stable. Heart rate 126. Patient is afebrile. Alert no acute distress. Pulse ox 98% on room air HEENT exam is unremarkable. Neck is supple. Lungs are clear and equal bilaterally. Heart is regular and tachycardic Abdomen is soft nontender nondistended. Extremities are unremarkable. Skin is warm and dry. No focal neurologic deficit. Normal strength and sensation. Remainder of exam is unremarkable. Emergency Department Course and Treatment: EKG is atrial rhythm rate of 104 with no acute ischemic changes. CBC, chemistries unremarkable other than glucose 144. Troponin is negative. D-dimer elevated 0.68. Covid is negative. Due to elevated D-dimer, CTA chest was obtained and shows Technically inadequate exam for confirming or excluding pulmonary emboli as indicated above. Improper bolus and timing. Scattered focal pulmonary opacities especially on the right, suggestive of multifocal pneumonia. With patient's symptoms and CT findings she likely has Covid with a false negative test. She has remained persistently tachycardic despite IV fluids in the emergency department. Discussed with the hospitalist for observation. Disposition: Observation Impression: Presumed Covid, multifocal pneumonia, tachycardia This note was generated with [employer] dictation software. It may contain incorrect words, spelling, and punctuation that were not noted in review of the chart prior to signing ED Disposition - Plan for ED Patient: Referrals: Elsie Padron DO [Primary Care Provider] -
[2020-04-14 16:06] LABS: Anion Gap 5 (5-15); BUN 10 mg/dL (7-18); BUN/Creat Ratio 16.6 RATIO (10-20); Calcium,Total 8.8 mg/dL (8.5-10.1); Chloride 106 mmol/L (98-107); EST Glomerular Filtration Rate 113 mL/min (>60); Est Glom Filt Rate - Afr Amer 136 mL/min (>60); Estimated Creatinine Clearance 100.09 ml/min; Glucose 144 mg/dL (74-106); Potassium 3.6 mmol/L (3.5-5.1); Sodium Level 138 mmol/L (136-145)
[2020-04-14 16:31] LABS: D-Dimer Quantitative (DVT/PE) 0.68 FEU/ug/m (0.27-0.49)
--- NOTE | 2020-04-14 16:33 | CT_ITS ---
STUDY: CTA CHEST REASON FOR EXAM: Female, 49 years old. WEAKNESS AND FATIGUE. RADIATION DOSAGE (If Supplied By Facility): CTDIvol = ( 11.31 ) mGy, DLP = ( 466.69 ) mGycm TECHNIQUE: The examination was performed with the intravenous administration of IV 100mL Isovue-370. Post-processing of the angiographic images was performed, with multiplanar reformation and 3D reconstruction. Individualized dose optimization techniques were used for this CT. COMPARISON: None. FINDINGS: There is limited enhancement of the main pulmonary artery and right and left pulmonary arteries. There is limited enhancement of the bilateral peripheral pulmonary arteries. Specifically, most of the contrast is seen in the left brachiocephalic vein and SVC, and the aorta is enhanced greater than the pulmonary arteries. This indicates a much too broad contrast bolus with improper timing. Exam also limited by motion. Pulmonary emboli cannot be excluded beyond the pulmonary trunk. Normal thoracic aorta and visualized great vessels. There is no demonstrated aortic dissection. Normal heart and pericardium. Normal mediastinum. Normal hilar regions. Normal visualized trachea and bronchi. The lungs are under expanded. Small ill-defined scattered pulmonary opacities are seen in the right upper lobe and the posterior right lower lobe, and also in the center of the left lower lobe. Findings are consistent with nonspecific inflammatory process. Normal osseous structures. Normal visualized upper abdomen. CT/CTA Chest W/WO Contrast IMPRESSION: Technically inadequate exam for confirming or excluding pulmonary emboli as indicated above. Improper bolus and timing. Scattered focal pulmonary opacities especially on the right, suggestive of multifocal pneumonia. Electronically Signed: Blake Murray MD at 18:04 EST , Service support ,
[2020-04-14] MEDS: LORazepam 0.5 MG Tablet PO ×2 (16:50→20:59)
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
[2020-04-14] MEDS: Enoxaparin 100 MG/ML Syringe 90 MG SC (19:04)
--- NOTE | 2020-04-14 19:32 | VDLE_ITS ---
Reason For Study: PE RIGHT LEFT CFV, FV, POP V, T/P Trunk, PTV, Peroneal V, CFV, FV, POP V, T/P Trunk, PTV, Peroneal V, and GSV are compressible. and GSV are compressible. Procedure This is a venous duplex using B-mode, color flow and spectral Doppler. Exam performed portable in patient room. The exam was abbreviated due to the COVID 19 protocol. The exam was diagnostic. A preliminary report was called and/or faxed to bridge operator. Interpretation Summary No evidence for acute deep venous thrombosis bilateral lower extremities with patent and compressible bilateral great saphenous veins. Abbreviated COVID-19 protocol utilized Ordering Physician: Solange Zhu Performed By: Ted Pandya RVT
--- NOTE | 2020-04-14 19:37 | PCS.PANDOC ---
PANDEMIC DOCUMENTATION INITIATED: Date: 04/14/20 Time:1931
[2020-04-14 20:13] LABS: AST(SGOT) 16 U/L (15-37); Alanine Aminotransfer ALT/SGPT 31 U/L (13-56); Albumin, Serum 3.8 g/dL (3.2-5.0); Alkaline Phosphatase 83 U/L (45-117); Bilirubin, Direct 0.08 mg/dL (0.00-0.30); CRP 9.65 mg/L (0.0-3.0); Ferritin 96 ng/mL (8-252); LDH 203 U/L (84-246); Magnesium 2.3 mg/dL (1.6-2.6); Protein, Total 7.8 g/dL (6.4-8.2)
[2020-04-14 20:17] LABS: Procalcitonin 0.04 ng/mL (0.00-0.09)
[2020-04-14] MEDS: 0.9% Normal Saline 1,000 ML 100 ML IV (20:35)
[2020-04-14] MEDS: Famotidine 20 MG Tablet PO (20:59)
[2020-04-14] MEDS: Escitalopram Oxalate 10 MG Tablet PO (21:10)
[2020-04-15 01:54] VITALS: BP 155/98; PULSE 84; RESP 16; TEMP 36.5; O2SAT 98
[2020-04-15 02:33] LABS: Absolute Lymphocyte Count 1.99 X10^3/uL (0.83-4.51); Absolute Neutrophil Count 5.1 X10^3/uL (2.0-7.7); Basophil# 0.02 X10^3/uL; Basophil% 0.3 % (0-1); Eosinophil# 0.09 X10^3/uL; Eosinophils% 1.2 % (0-5); Hematocrit 37.5 % (37-47); Lymphocyte # 1.99 X10^3/ul (4.0); Mean Corp Hgb Conc 34.7 g/dL (32-36); Mean Corpuscular Volume 86.6 fL (81-99); Mean Platelet Vol. 9.5 fl (6.2-12.0); Monocyte# 0.47 X10^3/uL; Monocyte% 6.2 % (0-10); NRBC Flagged by Analyzer 0 % (0-5); Neutrophil # 5.05 X10^3/uL (2.7-7.7); Platelet Count 234 K/mm3 (150-450); RBC Distribution Width CV 12.2 % (11.6-14.6); RBC Distribution Width SD 38.6 fl (35.1-43.9); Red Blood Count 4.33 M/mm3 (4.2-5.4); White Blood Count 7.6 K/mm3 (4.4-11.0)
[2020-04-15 03:05] LABS: ALB/GLOB Ratio 0.9 RATIO (0.9-2.4); AST(SGOT) 12 U/L (15-37); Alanine Aminotransfer ALT/SGPT 25 U/L (13-56); Albumin, Serum 3.2 g/dL (3.2-5.0); Alkaline Phosphatase 72 U/L (45-117); Anion Gap 3 (5-15); BUN 7 mg/dL (7-18); BUN/Creat Ratio 13.2 RATIO (10-20); Calcium,Total 8.1 mg/dL (8.5-10.1); Chloride 109 mmol/L (98-107); Creatinine, Serum 0.53 mg/dL (0.55-1.02); EST Glomerular Filtration Rate 130 mL/min (>60); Est Glom Filt Rate - Afr Amer 158 mL/min (>60); Estimated Creatinine Clearance 113.31 ml/min; Globulin 3.6 g/dL (2.2-4.2); Glucose 107 mg/dL (74-106); Potassium 3.7 mmol/L (3.5-5.1); Protein, Total 6.8 g/dL (6.4-8.2); Sodium Level 140 mmol/L (136-145)
[2020-04-15 03:46] VITALS: PULSE 76
--- NOTE | 2020-04-15 05:55 | EKG12_ITS ---
Test Reason : AM EKG Blood Pressure : / mmHG Vent. Rate : 086 BPM Atrial Rate : 086 BPM P-R Int : 146 ms QRS Dur : 074 ms QT Int : 366 ms P-R-T Axes : 254 015 010 degrees QTc Int : 437 ms Unusual P axis, possible ectopic atrial rhythm Abnormal ECG Confirmed by CÉSAR PARKS, CY ([id number]), movie editor ARNALDO BARDALES ([id number]) on 04/17/2020 11:35:13 AM Referred By: ERASMO Confirmed By:CY LINDSEY MD
[2020-04-15 08:56] VITALS: BP 147/91; PULSE 86; RESP 16; TEMP 37; O2SAT 98
[2020-04-15] MEDS: Famotidine 20 MG Tablet PO (09:08)
[2020-04-15] MEDS: Enoxaparin 100 MG/ML Syringe 90 MG SC (09:08)
[2020-04-15 09:16] LABS: Probe Check PASS; Specimen Processing Control PASS
[2020-04-15] MEDS: Acetaminophen 325 MG Tablet 650 MG PO (10:03)
--- NOTE | 2020-04-15 10:49 | PCM.HP.ID ---
Problem List (1) Pneumonia due to COVID-19 virus Status: Acute Reason for Consult: covid Consulted by: Dr. Zhu History of Present Illness: The patient is a 49 year old F presented with sx since 04/04/20, c/o headache, chills, loss of taste/smell, severe fatigue, generalized weakness, and dyspnea with exertion. Daughter recently sick with covid. Others at home now in quarantine. Came to ED, on RA, CT-PE was not timed right. On therapeutic lovenox. Feeling about the same today. No chest pain. Full ROS performed and neg except as noted above. - Medical History Past Medical History (Chronic Problems): Chronic Problems Anxiety and depression (Chronic) HLD (hyperlipidemia) (Chronic) Obesity (BMI 30.0-34.9) (Chronic) Allergies/Adverse Reactions: Allergies aspirin Adverse Reaction (Verified 04/14/20 20:00) heart races/thins blood thins blood Penicillins [PCN] Adverse Reaction (Verified 04/14/20 20:00) Nausea Home Medications: Ambulatory Orders Medication Instructions Recorded Escitalopram Oxalate 10 mg PO QHS 04/14/20 Lorazepam 0.5 mg PO QHS 04/14/20 - Social History Tobacco Use: non-smoker Vital Signs Temp Pulse Resp BP Pulse Ox 98.6 F 86 16 147/91 H 98 04/15/20 08:56 04/15/20 08:56 04/15/20 08:56 04/15/20 08:56 04/15/20 08:56 Oxygen Delivery Method Room Air Weight: 88 kg Body Mass Index (BMI) 33.5 Microbiology Past 72 Hours 04/15/20 01:55 Legionella Antigen - Final Urine, Clean Catch Streptococcus pneumoniae Antigen (M - Final 04/14/20 21:10 Respiratory Panel (PCR) - Final Mucosa - Nasopharyngeal 04/14/20 15:25 SARS-CoV-2 Antigen (Rapid) - Final Mucosa - Nose Laboratory Tests Past 24 Hrs 04/14/20 04/14/20 04/14/20 15:30 15:30 15:30 WBC 7.0 RBC 4.75 Hgb 14.3 Hct 40.9 MCV 86.1 MCH 30.1 MCHC 35.0 RDW Std Deviation 38.1 RDW Coeff of Marlene 12.2 Plt Count 250 MPV 9.4 Immature Gran % (Auto) 0.400 Neut % (Auto) 67.8 Lymph % (Auto) 24.7 [place] % (Auto) 5.4 Eos % (Auto) 1.4 Baso % (Auto) 0.3 Absolute Neuts (auto) 4.7 Absolute Lymphs (auto) 1.73 Nucleated RBC % 0 D-Dimer Quant (PE/DVT) 0.68 H* Sodium 138 Potassium 3.6 Chloride 106 Carbon Dioxide 27.0 Anion Gap 5 BUN 10 Creatinine 0.60 Estim Creat Clear Calc 100.09 Est GFR (MDRD) Af Amer 136 Est GFR (MDRD) Non-Af 113 BUN/Creatinine Ratio 16.6 Glucose 144 H Calcium 8.8 Magnesium Ferritin Total Bilirubin Direct Bilirubin AST ALT Alkaline Phosphatase Lactate Dehydrogenase Troponin I < 0.015 C-React Prot Ext Range Total Protein Albumin Globulin Albumin/Globulin Ratio Procalcitonin COVID-19 (JAMES) 04/14/20 04/14/20 04/14/20 15:30 15:30 20:40 WBC RBC Hgb Hct MCV MCH MCHC RDW Std Deviation RDW Coeff of Marlene Plt Count MPV Immature Gran % (Auto) Neut % (Auto) Lymph % (Auto) [place] % (Auto) Eos % (Auto) Baso % (Auto) Absolute Neuts (auto) Absolute Lymphs (auto) Nucleated RBC % D-Dimer Quant (PE/DVT) Sodium Potassium Chloride Carbon Dioxide Anion Gap BUN Creatinine Estim Creat Clear Calc Est GFR (MDRD) Af Amer Est GFR (MDRD) Non-Af BUN/Creatinine Ratio Glucose Calcium Magnesium 2.3 Ferritin 96 Total Bilirubin 0.40 Direct Bilirubin 0.08 AST 16 ALT 31 Alkaline Phosphatase 83 Lactate Dehydrogenase 203 Troponin I < 0.015 C-React Prot Ext Range 9.65 H Total Protein 7.8 Albumin 3.8 Globulin 4.0 Albumin/Globulin Ratio Procalcitonin 0.04 COVID-19 (JAMES) 04/14/20 04/15/20 04/15/20 23:20 02:20 02:20 WBC 7.6 RBC 4.33 Hgb 13.0 Hct 37.5 MCV 86.6 MCH 30.0 MCHC 34.7 RDW Std Deviation 38.6 RDW Coeff of Marlene 12.2 Plt Count 234 MPV 9.5 Immature Gran % (Auto) 0.300 Neut % (Auto) 66.0 Lymph % (Auto) 26.0 [place] % (Auto) 6.2 Eos % (Auto) 1.2 Baso % (Auto) 0.3 Absolute Neuts (auto) 5.1 Absolute Lymphs (auto) 1.99 Nucleated RBC % 0 D-Dimer Quant (PE/DVT) Sodium 140 Potassium 3.7 Chloride 109 H Carbon Dioxide 28.0 Anion Gap 3 L BUN 7 Creatinine 0.53 L Estim Creat Clear Calc 113.31 Est GFR (MDRD) Af Amer 158 Est GFR (MDRD) Non-Af 130 BUN/Creatinine Ratio 13.2 Glucose 107 H Calcium 8.1 L Magnesium Ferritin Total Bilirubin 0.50 Direct Bilirubin AST 12 L ALT 25 Alkaline Phosphatase 72 Lactate Dehydrogenase Troponin I < 0.015 < 0.015 C-React Prot Ext Range Total Protein 6.8 Albumin 3.2 Globulin 3.6 Albumin/Globulin Ratio 0.9 Procalcitonin COVID-19 (JAMES) 04/15/20 07:29 WBC RBC Hgb Hct MCV MCH MCHC RDW Std Deviation RDW Coeff of Marlene Plt Count MPV Immature Gran % (Auto) Neut % (Auto) Lymph % (Auto) [place] % (Auto) Eos % (Auto) Baso % (Auto) Absolute Neuts (auto) Absolute Lymphs (auto) Nucleated RBC % D-Dimer Quant (PE/DVT) Sodium Potassium Chloride Carbon Dioxide Anion Gap BUN Creatinine Estim Creat Clear Calc Est GFR (MDRD) Af Amer Est GFR (MDRD) Non-Af BUN/Creatinine Ratio Glucose Calcium Magnesium Ferritin Total Bilirubin Direct Bilirubin AST ALT Alkaline Phosphatase Lactate Dehydrogenase Troponin I C-React Prot Ext Range Total Protein Albumin Globulin Albumin/Globulin Ratio Procalcitonin COVID-19 (JAMES) Positive - Other Studies Radiology: [] reviewed Other Studies: [] Route of nutrition/ use of supplements: [] Nutritional Intake: [] IV Site: [] Farley Catheter: [] - Physical Exam General: Alert, Oriented x3, Cooperative, No apparent distress HEENT: Atraumatic, PERRLA, EOMI Neck: Supple, No Nodes Lungs: Clear to auscultation, Diminished Cardiovascular: Regular rate, Regular Rhythm Abdomen: Soft, Non Tender, Non-Distended Extremities: No edema Skin: No rashes IV Site: Peripheral, without redness Musculoskeletal: No Tenderness to Palpation of Joints or Extremities Neurological: Cranial nerves II-XII grossly intact - Assessment/Plan Antibiotics: [] Assessment/Plan: [] Active and Suspected Problems Pneumonia due to COVID-19 virus (Acute) Elevated BP without diagnosis of hypertension (Acute) Orthostatic dizziness (Acute) covid without hypoxia - d-dimer mildly elevated at 0.7, CT PE was nondiagnostic. With mild/moderate covid, will decrease lovenox to 40mg bid; low suspicion for DVT/PE at this time. Not on dex or remdesivir. Family is on quarantine. Satting well on RA. Sx started around 04/04, plan on ending quarantine once sx are improving. Will follow, thank you
[2020-04-15 11:21] VITALS: PULSE 71
--- NOTE | 2020-04-15 11:32 | PCM.DC ---
- Discharge Diagnoses Current Active Problems: Current Active and Chronic Problems Pneumonia due to COVID-19 virus (Acute) Elevated BP without diagnosis of hypertension (Acute) Orthostatic dizziness (Acute) Anxiety and depression (Chronic) HLD (hyperlipidemia) (Chronic) Obesity (BMI 30.0-34.9) (Chronic) You will use the following diet at home:: No restrictions Your food should be the consistency of: Regular Your liquids should be the consistency of: Regular/Thin Discharge Activity: Return to Normal Activity, - - Self-isolation until 04/23/2020 Allergies/Adverse Reactions: Allergies aspirin Adverse Reaction (Verified 04/14/20 20:00) heart races/thins blood thins blood Penicillins [PCN] Adverse Reaction (Verified 04/14/20 20:00) Nausea Medications to take at Discharge Escitalopram Oxalate 10 mg PO QHS 04/14/20 Lorazepam 0.5 mg PO QHS 04/14/20 Dexamethasone [Decadron] 6 mg PO DAILY #10 tab 04/15/20 The following prescriptions were given: Dexamethasone [Decadron] 6 mg PO DAILY #10 tab Transmission Status: Pending to [facility] Primary Care Physician: Elsie Padron DO [Primary Care Provider] - Please follow up with your Primary Care Physician in: as needed Test Results: Test results from this visit will be discussed in further detail at your follow-up appointment, if applicable.
--- NOTE | 2020-04-15 11:34 | DS.PCM_ITS ---
Discharge Date and Diagnosis - Problem List Patient Problems: Active and Suspected Problems Pneumonia due to COVID-19 virus (Acute) Elevated BP without diagnosis of hypertension (Acute) Orthostatic dizziness (Acute) Date of Admission: 04/14/20 Date of Discharge: 04/15/20 - Primary Discharge Diagnosis Acute Problems: Active Problems Pneumonia due to COVID-19 virus (Acute) Elevated BP without diagnosis of hypertension (Acute) Orthostatic dizziness (Acute) - Secondary Discharge Diagnosis Chronic Problems: Chronic Problems Anxiety and depression (Chronic) HLD (hyperlipidemia) (Chronic) Obesity (BMI 30.0-34.9) (Chronic) Hospital Course and Treatment Imaging Results: STUDY: CTA CHEST REASON FOR EXAM: Female, 49 years old. WEAKNESS AND FATIGUE. RADIATION DOSAGE (If Supplied By Facility): CTDIvol = ( 11.31 ) mGy, DLP = ( 466.69 ) mGycm TECHNIQUE: The examination was performed with the intravenous administration of IV 100mL Isovue-370. Post-processing of the angiographic images was performed, with multiplanar reformation and 3D reconstruction. Individualized dose optimization techniques were used for this CT. COMPARISON: None. FINDINGS: There is limited enhancement of the main pulmonary artery and right and left pulmonary arteries. There is limited enhancement of the bilateral peripheral pulmonary arteries. Specifically, most of the contrast is seen in the left brachiocephalic vein and SVC, and the aorta is enhanced greater than the pulmonary arteries. This indicates a much too broad contrast bolus with improper timing. Exam also limited by motion. Pulmonary emboli cannot be excluded beyond the pulmonary trunk. Normal thoracic aorta and visualized great vessels. There is no demonstrated aortic dissection. Normal heart and pericardium. Normal mediastinum. Normal hilar regions. Normal visualized trachea and bronchi. The lungs are under expanded. Small ill-defined scattered pulmonary opacities are seen in the right upper lobe and the posterior right lower lobe, and also in the center of the left lower lobe. Findings are consistent with nonspecific inflammatory process. Normal osseous structures. Normal visualized upper abdomen. CT/CTA Chest W/WO Contrast IMPRESSION: Technically inadequate exam for confirming or excluding pulmonary emboli as indicated above. Improper bolus and timing. Scattered focal pulmonary opacities especially on the right, suggestive of multifocal pneumonia. Infectious disease Operations: None Procedures: None Summary of Care Provided: Ms Kate a 49 year old WF past medical history of anxiety and depression who presented to the emergency department on 04/14/2020 with ongoing weakness and nausea. She had had symptoms of COVID-19 since 04/04/2020 that included chills, severe body aches, frontal headaches, loss of taste and smell, nausea without emesis, abdominal cramping, cough, dyspnea that is exertional and presented because she continues to feel poorly. On admission her oxygen saturation was 98% on room air, she had positive orthostatic vital signs and her D-dimer was noted to be 0.68. CTA of her chest was done and showed bilateral multifocal pneumonia consistent with COVID-19 but timing of contrast was inadequate to rule out pulmonary embolism. Given she is having no chest pain and not hypoxic I will hold off on repeating this study at this time. She was seen by infectious disease and there is no indication for remdesivir. I will give her Decadron and the prescription was sent to the pharmacy. When I discussed her symptoms with her today she exhibits signs of ongoing depression and anxiety and I am questioning whether or not some of her shortness of breath is related to her anxiety and mild panic. She is only utilize the Ativan once since it was prescribed and I did encourage her to take this if she gets those sensations but possibly cut it in half if the full dose is making her too sleepy. She is to self isolate until 04/23/2020. Discharge diagnoses Acute COVID-19 infection Orthostasis Anxiety Depression Patient Problems: Active and Suspected Problems Pneumonia due to COVID-19 virus (Acute) Elevated BP without diagnosis of hypertension (Acute) Orthostatic dizziness (Acute) Subjective: Patient denies any shortness of breath. States she is drinking better. Appetite is still not great. Sats are stable on room air. - Physical Exam Vitals/I&O's: Vital Signs Temp Pulse Resp BP Pulse Ox 98.6 F 86 16 147/91 H 98 04/15/20 08:56 04/15/20 08:56 04/15/20 08:56 04/15/20 08:56 04/15/20 08:56 Oxygen Delivery Method Room Air Weight: 88 kg Body Mass Index (BMI) 33.5 Intake and Output for Last 24 Hours 04/13/20 04/14/20 04/15/20 23:59 23:59 23:59 Intake Total 1000 / 1000 991.67 / 991.67 Output Total 200 / 200 Balance 1000 / 1000 791.67 / 791.67 General: Alert, Oriented x3, Cooperative, No apparent distress, Well developed, Well nourished HEENT: Atraumatic, Normocephalic Oral: Moist Mucosa, No Gingival or Mucosal Lesions/ Ulcerations Lungs: Clear to auscultation, No rhonchi, No wheeze, No rales, Diminished - Diffusely Cardiovascular: Regular rate, Regular Rhythm, Normal S1, Normal S2, No murmurs, No Ectopic Activity, No rub noted, No Gallop Abdomen: Bowel Sounds Present, Soft, Non Tender, Non-Distended, No hernias noted Extremities: No clubbing, No cyanosis, No edema, Capillary Refill Less than 3 Seconds, Peripheral Pulses Normal Neurological: Cranial nerves II-XII grossly intact, Neuro grossly intact Psych/Mental Status: Appropriate, Anxious Microbiology Past 72 Hours 04/15/20 01:55 Urine, Clean Catch Legionella Antigen - Final 04/15/20 01:55 Urine, Clean Catch Streptococcus pneumoniae Antigen (M - Final 04/14/20 21:10 Mucosa - Nasopharyngeal Respiratory Panel (PCR) - Final 04/14/20 15:25 Mucosa - Nose SARS-CoV-2 Antigen (Rapid) - Final Laboratory Results 04/14/20 15:30: WBC 7.0, RBC 4.75, Hgb 14.3, Hct 40.9, MCV 86.1, MCH 30.1, MCHC 35.0, RDW Std Deviation 38.1, RDW Coeff of Marlene 12.2, Plt Count 250, MPV 9.4, Immature Gran % (Auto) 0.400, Neut % (Auto) 67.8, Lymph % (Auto) 24.7, [place] % (Auto) 5.4, Eos % (Auto) 1.4, Baso % (Auto) 0.3, Absolute Neuts (auto) 4.7, Absolute Lymphs (auto) 1.73, Nucleated RBC % 0 04/14/20 15:30: D-Dimer Quant (PE/DVT) 0.68 H* 04/14/20 15:30: Sodium 138, Potassium 3.6, Chloride 106, Carbon Dioxide 27.0, Anion Gap 5, BUN 10, Creatinine 0.60, Estim Creat Clear Calc 100.09, Est GFR (MDRD) Af Amer 136, Est GFR (MDRD) Non-Af 113, BUN/Creatinine Ratio 16.6, Glucose 144 H, Calcium 8.8, Troponin I < 0.015 04/14/20 15:30: Magnesium 2.3, Ferritin 96, Total Bilirubin 0.40, Direct Bilirubin 0.08, AST 16, ALT 31, Alkaline Phosphatase 83, Lactate Dehydrogenase 203, C-React Prot Ext Range 9.65 H, Total Protein 7.8, Albumin 3.8, Globulin 4.0 04/14/20 15:30: Procalcitonin 0.04 04/14/20 20:40: Troponin I < 0.015 04/14/20 23:20: Troponin I < 0.015 04/15/20 02:20: WBC 7.6, RBC 4.33, Hgb 13.0, Hct 37.5, MCV 86.6, MCH 30.0, MCHC 34.7, RDW Std Deviation 38.6, RDW Coeff of Marlene 12.2, Plt Count 234, MPV 9.5, Immature Gran % (Auto) 0.300, Neut % (Auto) 66.0, Lymph % (Auto) 26.0, [place] % (Auto) 6.2, Eos % (Auto) 1.2, Baso % (Auto) 0.3, Absolute Neuts (auto) 5.1, Absolute Lymphs (auto) 1.99, Nucleated RBC % 0 04/15/20 02:20: Sodium 140, Potassium 3.7, Chloride 109 H, Carbon Dioxide 28.0, Anion Gap 3 L, BUN 7, Creatinine 0.53 L, Estim Creat Clear Calc 113.31, Est GFR (MDRD) Af Amer 158, Est GFR (MDRD) Non-Af 130, BUN/Creatinine Ratio 13.2, Glucose 107 H, Calcium 8.1 L, Total Bilirubin 0.50, AST 12 L, ALT 25, Alkaline Phosphatase 72, Troponin I < 0.015, Total Protein 6.8, Albumin 3.2, Globulin 3.6, Albumin/Globulin Ratio 0.9 04/15/20 07:29: COVID-19 (JAMES) Positive Current Medications Acetaminophen (Acetaminophen 325 Mg Tablet) 650 mg PO Q6H PRN PRN PRN Reason: Pain Score 1-10/Temp > 100.7 F Last Admin: 04/15/20 10:03 Dose: 650 mg Documented by: Al Hydroxide/Mg Hydroxide (Mag Hydrox/Al Hydrox/Simeth 30 Ml Udc) 30 ml PO Q6H PRN PRN PRN Reason: Gastric Burning Albuterol Sulfate (Albuterol 2.5 Mg/3 Ml Vial.Neb.) 2.5 mg INHALATION Q2H PRN PRN PRN Reason: Dyspnea, wheezing Dexamethasone (Dexamethasone 4 Mg Tablet) 6 mg PO DAILY [facility] Enoxaparin Sodium (Enoxaparin 100 Mg/Ml Syringe) 40 mg SC Q12 [facility] Escitalopram Oxalate (Escitalopram Oxalate 10 Mg Tablet) 10 mg PO QHS [facility] Last Admin: 04/14/20 21:10 Dose: 10 mg Documented by: Famotidine (Famotidine 20 Mg Tablet) 20 mg PO BID [facility] Last Admin: 04/15/20 09:08 Dose: 20 mg Documented by: Guaifenesin (Guaifenesin 10 Ml Udc (200mg/10ml)) 20 ml PO Q4H PRN PRN PRN Reason: COUGH Hydralazine HCl (Hydralazine 20 Mg/Ml Vial) 10 mg IV Q4H PRN PRN PRN Reason: SBP > 160 Lorazepam (Lorazepam 0.5 Mg Tablet) 0.5 mg PO QHS [facility] Last Admin: 04/14/20 20:59 Dose: 0.5 mg Documented by: Magnesium Hydroxide (Magnesium Hydroxide 30 Ml Udc) 30 ml PO DAILY PRN PRN PRN Reason: Constipation Melatonin (Melatonin 3 Mg Tablet) 3 mg PO QHS PRN PRN PRN Reason: INSOMNIA Nitroglycerin (Nitroglycerin (Inpatient Use) 0.4 Mg Tab.Subl) 0.4 mg SUBLINGUAL Q5M PRN PRN Reason: CARDIAC/CHEST PAIN Nutritional Formula (Lactose Free) (Ensure Enlive 120 Ml Liquid) 120 ml PO BID [facility] Last Admin: 04/15/20 09:12 Dose: 120 ml Documented by: Ondansetron HCl (Ondansetron 4 Mg/2 Ml Vial) 4 mg IV Q8H PRN PRN PRN Reason: NAUSEA/VOMITING Prochlorperazine Edisylate (Prochlorperazine 10 Mg/2 Ml Vial) 5 mg IV Q4H PRN PRN PRN Reason: Breakthrough nausea/vomiting Psyllium Hydrophilic Mucilloid (Psyllium 1 Packet) 1 packet PO DAILY PRN PRN PRN Reason: Constipation Senna/Docusate Sodium (Senna/Docusate Sodium 1 Tablet) 2 tablet PO BID PRN PRN PRN Reason: Constipation Sodium Chloride (0.9% Saline Lock 10 Ml Syringe) 10 - 40 ml IV UD PRN PRN Reason: SALINE FLUSH Throat Lozenges (Benzocaine/Menthol 1 Lozenge) 1 lozenge MUCOUS MEM Q2H PRN PRN PRN Reason: SORE THROAT Discharge Activity: Return to Normal Activity, - - Self-isolation until 04/23/2020 Home Medications: Medications to take at Discharge Escitalopram Oxalate 10 mg PO QHS 04/14/20 Lorazepam 0.5 mg PO QHS 04/14/20 Dexamethasone [Decadron] 6 mg PO DAILY #10 tab 04/15/20 Following Prescriptions Were Given to Patient: Dexamethasone [Decadron] 6 mg PO DAILY #10 tab Transmission Status: Pending to [facility] Primary Care Physician: Elsie Padron DO [Primary Care Provider] - Please follow up with your Primary Care Physician in: as needed Medical Necessity - Tobacco Use Smoking Status: Never smoker Tobacco Use: Secondhand Meaningful Use Info Meaningful Use Diagnoses (Choose all that apply): None applicable Inpatient E&M: 78036 [facility]
[2020-04-15 15:50] VITALS: BP 160/99; PULSE 87; RESP 18; TEMP 36.8; O2SAT 96
[2020-04-15] MEDS: dexAMETHasone 4 MG Tablet 6 MG PO (15:57)
== END 2020-04-15 17:00 | disposition home or self-care (01) ==
LOC: ED 15:41 → MS2 18:55
PROVIDERS: Admitting Provider Family Medicine; Emergency Provider Emergency Medicine; PCP Internal Medicine; Visit Provider Internal Medicine
DX: U07.1 COVID-19 (principal); J12.82 Pneumonia due to coronavirus disease 2019; F41.9 Anxiety disorder, unspecified; E78.5 Hyperlipidemia, unspecified; R03.0 Elevated blood-pressure reading, without diagnosis of hypertension; E66.9 Obesity, unspecified; Z68.33 Body mass index [BMI] 33.0-33.9, adult; R73.9 Hyperglycemia, unspecified; F32.9 Major depressive disorder, single episode, unspecified; R42 Dizziness and giddiness
CPT/HCPCS: 36415; 71045; 71275; 80048; 80053; 80076; 82728; 83615; 83735; 84145; 84484; 85025; 85379; 86140; 87426; 87449; 87633; 87635; 93005; 93970; 96360; 96361; 96372; 99218; 99251; 99285; J7030; Q9967; A4216; G0378; G0463; U0002

== ENCOUNTER → 2021-02-06 10:02 | Outpatient (CLI) | payer SELFPAY, OTHER ==
--- NOTE | 2021-02-06 10:08 | US_ITS ---
STUDY: THYROID ULTRASOUND REASON FOR EXAM: Female, 50 years old. NODULE TECHNIQUE: Ultrasound evaluation of the thyroid was performed with real-time and static adkins-scale imaging. COMPARISON: 04/22/2018 FINDINGS: RIGHT LOBE: The right lobe of the thyroid gland measures 4.7 x 1.9 x 1.6 cm. There is a homogeneous echotexture. There is a small solid nodule measuring 5 x 6 x 2 mm demonstrating irregular margins and perinodular vascularity. There is a small nodule measuring 3 x 3 x 2 mm. LEFT LOBE: The left lobe of the thyroid gland measures 4.8 x 1.6 x 1 cm. There is a homogeneous echotexture. There are no demonstrated solid, cystic or complex lesions. ISTHMUS: The isthmus measures 3 mm . There is a tiny cystic nodule measuring 3 x 3 x 1 mm The regional lymph nodes are normal. There has been minimal increase in size and 2 nodules in the right lobe and the nodule in the isthmus is new US/Thyroid IMPRESSION: Relatively stable appearance to right thyroid nodules with tiny new cystic nodule in the isthmus.. Recommend follow-up study in approximately 6 months to assess for interval change Electronically Signed: Ryan Parra MD at 16:56 EDT , Service support ,
== END ==
PROVIDERS: PCP Internal Medicine; Referring Provider Internal Medicine; Visit Provider Internal Medicine
DX: E04.1 Nontoxic single thyroid nodule (principal)
CPT/HCPCS: 76536

== ENCOUNTER → 2021-11-10 | Outpatient (CLI) | payer SELFPAY ==
--- NOTE | 2021-11-10 13:32 | US_ITS ---
STUDY: THYROID ULTRASOUND REASON FOR EXAM: Female, 51 years old. THYROMEGALY TECHNIQUE: Ultrasound evaluation of the thyroid was performed with real-time and static adkins-scale imaging. COMPARISON: Comparison is made with prior study dated 02/06/2021. FINDINGS: RIGHT LOBE: The right lobe of the thyroid gland is enlarged and measures 5.1 cm x 1.5 cm x 1.6 cm. There is a homogeneous echotexture. There is a 4 mm x 3 mm x 3 mm hypoechoic solid nodule with internal nodular flow in the midportion of the thyroid gland. A similar appearing nodule measuring 2 mm x 2 mm x 1 mm is seen as well. LEFT LOBE: The left lobe of the thyroid gland measures 4.6 x 1.8 cm x 1.2 cm. There is a homogeneous echotexture. There are no demonstrated solid, cystic or complex lesions. ISTHMUS: The isthmus measures 3 mm. The regional lymph nodes are normal. US/Thyroid IMPRESSION: 2 subcentimeter hypoechoic nodules in the right lobe. There has been no change. Electronically Signed: Daniel Chowdhury MD at 15:33 EDT ,
== END | disposition home or self-care (01) ==
LOC: US 13:26
PROVIDERS: PCP Internal Medicine; Referring Provider Internal Medicine; Visit Provider Internal Medicine
DX: E04.9 Nontoxic goiter, unspecified (principal)
CPT/HCPCS: 76536

== ENCOUNTER → 2021-12-21 | Outpatient (CLI) | payer SELFPAY ==
--- NOTE | 2021-12-21 12:58 | US_ITS ---
INDICATION: HIRSUTISM EXAMINATION: Ultrasound US Pelvis Non OB Complete With Transvaginal Imaging TECHNIQUE: Transabdominal and transvaginal pelvic ultrasound was performed. Grayscale, spectral waveform, and color flow Doppler evaluation of the adnexa. COMPARISON: None. FINDINGS: UTERUS: Patient is status post hysterectomy. RIGHT OVARY: The right ovary was not visualized. LEFT OVARY: The left ovary demonstrates unremarkable echogenicity with no evidence of masses, a simple unilocular physiologic cyst is visualized measuring 2.1 x 1.6 x 1.3 cm. The left ovary measures 3.1 x 2.2 x 1.7 cm. There is normal arterial inflow and venous outflow present in the left ovary. FREE FLUID: None. US/Pelvic (Non ) IMPRESSION: Unilocular physiologic cyst visualized in the left ovary otherwise the left ovary is unremarkable. The uterus and right ovary are not visualized, surgically absent. Electronically Signed: Carlos Franco MD at 14:56 EDT ,
--- NOTE | 2021-12-21 12:58 | US_ITS ---
INDICATION: HIRSUTISM EXAMINATION: Ultrasound US Pelvis Non OB Complete With Transvaginal Imaging TECHNIQUE: Transabdominal and transvaginal pelvic ultrasound was performed. Grayscale, spectral waveform, and color flow Doppler evaluation of the adnexa. COMPARISON: None. FINDINGS: UTERUS: Patient is status post hysterectomy. RIGHT OVARY: The right ovary was not visualized. LEFT OVARY: The left ovary demonstrates unremarkable echogenicity with no evidence of masses, a simple unilocular physiologic cyst is visualized measuring 2.1 x 1.6 x 1.3 cm. The left ovary measures 3.1 x 2.2 x 1.7 cm. There is normal arterial inflow and venous outflow present in the left ovary. FREE FLUID: None. US/Transvaginal Non- IMPRESSION: Unilocular physiologic cyst visualized in the left ovary otherwise the left ovary is unremarkable. The uterus and right ovary are not visualized, surgically absent. Electronically Signed: Carlos Franco MD at 14:56 EDT ,
== END | disposition home or self-care (01) ==
PROVIDERS: PCP Internal Medicine; Referring Provider Internal Medicine; Visit Provider Internal Medicine
DX: L68.0 Hirsutism (principal)
CPT/HCPCS: 76830; 76856

== ENCOUNTER 2024-02-03 19:13 | Emergency (ER) | payer OTHER, SELFPAY ==
[2024-02-03 19:14] VITALS: BP 175/99; PULSE 85; RESP 17; TEMP 36.6; O2SAT 98; BMI 35.6
[2024-02-03 21:49] VITALS: BP 154/89; PULSE 85; RESP 17; TEMP 36.6; O2SAT 98
--- NOTE | 2024-02-03 21:49 | ED.VIS.LOWEX ---
HPI History of Present Illness Chief Complaint: Lower Extremity Injury Informant: patient Narrative Narrative: 53-year-old female presenting to the emergency room with the chief complaint of leg pain. Patient went to get something out of the refrigerator and felt a burning stinging pain in her lateral lower left leg. She states that she locked and the vein that she has seen close to the surface laterally appeared to have a bump in it. She notes it continues to be painful and she started worrying that she may have a DVT. She has no known clotting disorders. She states she cannot take aspirin but she does not remember why. Our system states that her heart races and it thins her blood. PFSH PFS Home Medications ?Medication ?Instructions ?Recorded ?Last Taken ?Type escitalopram oxalate 10 mg tablet 10 mg PO QHS 04/14/20 04/13/20 History lorazepam 0.5 mg tablet 0.5 mg PO QHS 04/14/20 04/13/20 History rosuvastatin 5 mg tablet 5 mg PO DAILY 04/24/21 Unknown History Allergy/AdvReac Type Severity Reaction Status Date / Time aspirin AdvReac heart Verified 02/03/24 19:14 races/thins blood Penicillins (PCN) AdvReac Nausea Verified 02/03/24 19:14 Social History housing: house Smoking Status: Never smoker ROS ROS ED Constitutional Constitutional ED: Denies chills, fever(s) or weight loss Eyes Eyes: Denies change in vision or diplopia ENT ENT ED: Denies ear pain, rhinorrhea or sore throat Cardiovascular Cardiovascular: Denies chest pain, orthopnea, palpitations or racing heartbeat Respiratory/Chest Respiratory/Chest: Denies cough, dyspnea or orthopnea Gastrointestinal Gastrointestinal: Denies abdominal pain, diarrhea, nausea or vomiting Genitourinary Genitourinary ED: Denies dysuria, hematuria or urinary frequency Musculoskeletal Musculoskeletal: Reports other Details: See history of present illness ; Denies arthralgias or myalgias Integumentary Denies abscess or rash Neurologic Neurologic: Denies headache(s) or weakness Psychiatric Psychiatric: Denies anxiety, depression, suicidal ideation or suicidal thoughts Endocrine Endocrinology: Denies polydipsia, polyphagia or polyuria Allergic/Immunologic Allergic/Immunologic ED: Denies mouth swelling, tongue swelling or urticaria EXAM Physical Exam Const Vital Signs: 02/03/24 19:14 Temperature 97.9 F Temperature Source Temporal Pulse Rate 85 Respiratory Rate 17 Blood Pressure 175/99 H Blood Pressure Mean 124 Pulse Ox 98 Oxygen Delivery Method Room Air Positive well nourished and well developed General Appearance ED: well developed and NAD HEENT Reports normocephalic, head/scalp atraumatic and moist mucous membranes Eyes PERRL and EOMs intact bilaterally Neck no lymphadenopathy, supple and no JVD Resp normal respiratory effort and clear to auscultation bilaterally Cardio regular rate, regular rhythm and no murmurs GI normal to inspection, nondistended, normoactive bowel sounds and non-tender Palpation: soft Back/Spine no CVA tenderness and normal ROM Extremity Extremity Narrative: There is no swelling of the left leg. Lateral proximal left leg demonstrates a superficial vein that has a slight varicosity to it. This varicosity is tender to palpation and slightly firm suggesting early superficial thrombophlebitis. There is no surrounding hematoma or erythema at this time. General Extremety ED: Negative for edema General Extremity: Negative for edema Neuro oriented x3 and CN's II-XII intact bilaterally Sensorium / Orientation: alert Motor Exam: strength 5/5 throughout Psych mental status grossly normal Mood & Affect: Negative for depressed or tearful Skin no rashes or lesions noted and no wounds MDM MDM MDM Narrative Medical decision making narrative: Differential diagnosis includes but not limited to DVT superficial thrombophlebitis bleeding from vein hematoma muscle strain tendon injury Clinically there appears to be a acute clot in a mildly varicosed superficial vein of the lateral leg. Would recommend heat. She does not wish to use aspirin or NSAIDs. She can use Tylenol as needed. I would recommend the patient return if worsening or concerns History & Record Review Discussion w/independent historian: Patient Discharge Plan Triage Chief Complaint: Lower Extremity Injury ED Provider: Jacob Dumont Dx/Rx/DC Orders Clinical Impression: Superficial thrombophlebitis of left leg Instructions: ED Thrombophlebitis, Superficial Prescriptions: No Action rosuvastatin 5 mg tablet 5 mg PO DAILY lorazepam 0.5 MG tablet 0.5 mg PO QHS Patient Comments: TAKE 1 TABLET BY MOUTH AT BEDTIME FOR 7 DAYS THEN NEEDED FOR ANXIETY escitalopram oxalate 10 MG tablet 10 mg PO QHS Primary Care Provider: Elsie Padron Referrals: Elsie Padron DO [Primary Care Provider] - As Needed Print Language: [place] Zealander Disposition Disposition: Home, Self Care
== END 2024-02-03 22:03 | disposition home or self-care (01) ==
PROVIDERS: Emergency Provider Emergency Medicine; PCP Internal Medicine; Visit Provider Emergency Medicine
DX: I80.02 Phlebitis and thrombophlebitis of superficial vessels of left lower extremity (principal); Z88.0 Allergy status to penicillin
CPT/HCPCS: 99282

== ENCOUNTER → 2024-02-08 | Outpatient (CLI) | payer OTHER, SELFPAY | END | disposition home or self-care (01) | PROVIDERS: PCP Internal Medicine; Referring Provider Internal Medicine; Visit Provider Internal Medicine | DX: M79.662 Pain in left lower leg (principal) | CPT/HCPCS: 93971 ==